=== PATIENT | female | born 1945 | race Caucasian/White ===

== ENCOUNTER → 2020-08-06 08:38 | Outpatient (CLI) | payer MEDICARE, SELFPAY ==
[2020-08-06 12:21] LABS: Absolute Lymphocyte Count 2.07 X10^3/uL (0.83-4.51); Basophil# 0.04 X10^3/uL; Basophil% 0.4 % (0-1); Eosinophil# 0.38 X10^3/uL; Eosinophils% 4.1 % (0-5); Hematocrit 41.9 % (37-47); Hemoglobin 13.6 g/dL (12.0-15.0); Lymphocyte # 2.07 X10^3/ul (4.0); Lymphocyte % 22.5 % (19-41); Mean Corp Hgb Conc 32.5 g/dL (32-36); Mean Corpuscular Hgb 29.8 pg (27.0-32.0); Mean Corpuscular Volume 91.7 fL (81-99); Mean Platelet Vol. 11.3 fl (6.2-12.0); Monocyte# 0.66 X10^3/uL; Monocyte% 7.2 % (0-10); NRBC Flagged by Analyzer 0 % (0-5); Neutrophil # 5.99 X10^3/uL (2.7-7.7); Neutrophil % 65.4 % (47-70); Platelet Count 293 K/mm3 (150-450); RBC Distribution Width CV 13.2 % (11.6-14.6); RBC Distribution Width SD 44.5 fl (35.1-43.9); Red Blood Count 4.57 M/mm3 (4.2-5.4); White Blood Count 9.2 K/mm3 (4.4-11.0)
[2020-08-06 12:45] LABS: ALB/GLOB Ratio 1.1 RATIO (0.9-2.4); AST(SGOT) 14 U/L (15-37); Alanine Aminotransfer ALT/SGPT 20 U/L (13-56); Albumin, Serum 3.8 g/dL (3.2-5.0); Alkaline Phosphatase 81 U/L (45-117); Anion Gap 7 (5-15); BUN 32 mg/dL (7-18); BUN/Creat Ratio 26.9 RATIO (10-20); Calcium,Total 8.8 mg/dL (8.5-10.1); Chloride 107 mmol/L (98-107); Cholesterol 154 mg/dL (200); Creatinine, Serum 1.19 mg/dL (0.55-1.02); EST Glomerular Filtration Rate 47 mL/min (>60); Est Glom Filt Rate - Afr Amer 57 mL/min (>60); Globulin 3.5 g/dL (2.2-4.2); Glucose 98 mg/dL (74-106); High Density Lipoprotein 45 mg/dL; Potassium 4.1 mmol/L (3.5-5.1); Protein, Total 7.3 g/dL (6.4-8.2); Sodium Level 140 mmol/L (136-145); Triglycerides 144 mg/dL; Very Low Density Lipoprotein 29 mg/dL (5-40)
== END ==
PROVIDERS: PCP Family Medicine; Visit Provider Family Medicine
DX: I25.10 Atherosclerotic heart disease of native coronary artery without angina pectoris (principal); I10 Essential (primary) hypertension
CPT/HCPCS: 36415; 80053; 80061; 85025

== ENCOUNTER → 2020-12-05 10:55 | Outpatient (CLI) | payer MEDICARE, SELFPAY ==
--- NOTE | 2020-12-05 11:00 | RAD_ITS ---
STUDY: X-RAY - LEFT ANKLE REASON FOR EXAM: Female, 75 years old. ANKLE PAIN TECHNIQUE: 3 view(s) of the ankle. COMPARISON: None. FINDINGS: Normal visualized distal tibia and fibula. Normal medial and lateral malleoli. Normal tibiotalar articulation and ankle mortise. Normal visualized talus and calcaneus. Prominent degenerative change of the midfoot The soft tissue structures are unremarkable. RAD/Ankle min 3 Views IMPRESSION: Normal x-ray examination of the ankle. Electronically Signed: Mino Verdugo DO at 2:10 EST Tel , Service support ,
== END ==
PROVIDERS: PCP Family Medicine; Referring Provider Family Medicine; Visit Provider Family Medicine
DX: M25.572 Pain in left ankle and joints of left foot (principal)
CPT/HCPCS: 73610

== ENCOUNTER → 2020-12-29 14:45 | Outpatient (CLI) | payer MEDICARE, SELFPAY ==
--- NOTE | 2020-12-29 14:47 | BI_ITS ---
MAMMOGRAPHY - BILATERAL SCREENING 3-D TOMOSYNTHESIS REASON FOR EXAM: Female, 75 years old. SCREENING PERTINENT HISTORY: No significant family history. TECHNIQUE: 2-D mammograms and 3-D Tomosynthesis of the breast (s) were performed. CAD was performed. COMPARISON: 2014 FINDINGS: The breast composition is almost entirely fat. Scattered benign calcifications are seen. No dense spiculated masses or suspicious microcalcifications are identified. No architectural distortion is identified. There is no skin thickening or retraction. There has been no significant change since the prior study. BI/SCRN MAMM (CAD)W/LESLY BILAT IMPRESSION: No mammographic signs of malignancy. Routine yearly mammograms recommended. ASSESSMENT CATEGORY: BIRADS Category 1: Negative. A letter regarding these results will be sent to the patient by the facility within 30 days. FOLLOW UP RECOMMENDATION: Yearly follow up mammogram recommended. (A) Approximately 10% of breast cancers are not detected by mammography. A normal mammogram should not delay biopsy of a clinically suspicious abnormality. Electronically Signed: Richard Arvizu MD at 13:32 EDT , Service support ,
== END ==
PROVIDERS: PCP Family Medicine; Referring Provider Family Medicine; Visit Provider Family Medicine
DX: Z12.31 Encounter for screening mammogram for malignant neoplasm of breast (principal)
CPT/HCPCS: 77063; 77067

== ENCOUNTER → 2021-03-13 09:18 | Outpatient (CLI) | payer MEDICARE, SELFPAY ==
[2021-03-13 09:37] LABS: Absolute Lymphocyte Count 2.09 X10^3/uL (0.83-4.51); Absolute Neutrophil Count 6.1 X10^3/uL (2.0-7.7); Basophil# 0.05 X10^3/uL; Basophil% 0.5 % (0-1); Eosinophil# 0.39 X10^3/uL; Eosinophils% 4.2 % (0-5); Hematocrit 41.5 % (37-47); Hemoglobin 13.7 g/dL (12.0-15.0); Lymphocyte # 2.09 X10^3/ul (0.83-4.51); Lymphocyte % 22.4 % (19-41); Mean Corpuscular Volume 87.9 fL (81-99); Mean Platelet Vol. 10.5 fl (6.2-12.0); Monocyte# 0.68 X10^3/uL; Monocyte% 7.3 % (0-10); NRBC Flagged by Analyzer 0 % (0-5); Neutrophil # 6.06 X10^3/uL (2.7-7.7); Neutrophil % 65.2 % (47-70); Platelet Count 305 K/mm3 (150-450); RBC Distribution Width CV 13.5 % (11.6-14.6); RBC Distribution Width SD 43.7 fl (35.1-43.9); Red Blood Count 4.72 M/mm3 (4.2-5.4); White Blood Count 9.3 K/mm3 (4.4-11.0)
[2021-03-13 09:45] LABS: Color, Urine Yellow (Yellow); Glucose, Dipstick Normal (Normal); Ketone-Dipstick Negative (Negative); Leukocyte Esterase-Dipstick 500 /ul (Negative); Nitrite-Dipstick Negative (Negative); Occult Blood-Urine 50 /ul (Negative); Protein-Dipstick 30 mg/dl (Negative); Specific Gravity, Urine 1.025 (1.002-1.030); Urine Bilirubin Dipstick Negative (Negative); Urine Clarity Cloudy (Clear); Urine Urobilinogen Normal (Normal)
[2021-03-13 10:05] LABS: AST(SGOT) 18 U/L (15-37); Alanine Aminotransfer ALT/SGPT 20 U/L (13-56); Albumin, Serum 3.6 g/dL (3.2-5.0); Alkaline Phosphatase 99 U/L (45-117); Anion Gap 9 (5-15); BUN 22 mg/dL (7-18); BUN/Creat Ratio 17.3 RATIO (10-20); Calcium,Total 9.4 mg/dL (8.5-10.1); Chloride 106 mmol/L (98-107); Cholesterol 203 mg/dL (200); Creatinine, Serum 1.27 mg/dL (0.55-1.02); EST Glomerular Filtration Rate 44 mL/min (>60); Est Glom Filt Rate - Afr Amer 53 mL/min (>60); Globulin 3.5 g/dL (2.2-4.2); Glucose 113 mg/dL (74-106); High Density Lipoprotein 49 mg/dL; Protein, Total 7.1 g/dL (6.4-8.2); Sodium Level 141 mmol/L (136-145); Triglycerides 152 mg/dL; Very Low Density Lipoprotein 30 mg/dL (5-40)
== END ==
PROVIDERS: PCP Family Medicine; Referring Provider Family Medicine; Visit Provider Family Medicine
DX: I12.9 Hypertensive chronic kidney disease with stage 1 through stage 4 chronic kidney disease, or unspecified chronic kidney disease (principal); I25.10 Atherosclerotic heart disease of native coronary artery without angina pectoris; N18.30 Chronic kidney disease, stage 3 unspecified
CPT/HCPCS: 36415; 80053; 80061; 81002; 85025

== ENCOUNTER 2021-10-20 18:08 | Outpatient (CLI) | payer MEDICARE, SELFPAY | END 2021-10-20 23:59 | disposition short-term general hospital (02) | PROVIDERS: PCP Family Medicine; Visit Provider Family Medicine | DX: U07.1 COVID-19 (principal) | CPT/HCPCS: 87635; U0003; U0005 ==

== ENCOUNTER 2022-01-20 18:57 | Emergency (ER) | payer MEDICARE, SELFPAY ==
[2022-01-20 18:58] VITALS: BP 199/78; PULSE 95; RESP 17; TEMP 36.2; O2SAT 100; BMI 43.4
--- NOTE | 2022-01-20 19:15 | EDS_ITS ---
HPI History of Present Illness Chief Complaint: Back Informant: patient Onset/Context/Timing Onset: Days (2) Context: - (Awoke with symptoms yesterday morning) Timing: Continuous Quality: Aching Location: Lumbar (Across lower back nonlateralizing) Current Severity: Moderate Maximum Severity: Moderate Worsened by: improves with Movement and Ambulation Relieved by: Remaining Still Associated Symptoms Associated Symptoms: Negative for Numbness, Tingling, Radiation to Right Leg, Radiation to Left Leg, Abdominal Pain, Dysuria, Unable to Ambulate, Urinary Retention, Urinary Incontinence, Constipation and Fecal Incontinence Narrative Narrative: Patient states she does not usually have back problems, she woke up with low back discomfort yesterday morning it has persisted. She took some Aleve, it may be helped a little but not very much. It is worse when she walks mostly. She can sit okay without significant discomfort, no radiation down the legs, no saddle anesthesia, no bowel or bladder dysfunction. No numbness or weakness in her legs and she is able to walk okay just hurts. [facility] Medical History Arthritis Cervical radiculopathy Cervical strain Heart disease HTN (hypertension) Shoulder pain Strain of right trapezius muscle Home Medications amlodipine 5 mg tablet mg PO 04/20/21 [History Last Taken Unknown] aspirin 81 mg tablet,delayed release 81 mg PO DAILY 04/20/21 [History Last Taken Unknown] celecoxib 200 mg capsule mg PO 04/20/21 [History Last Taken Unknown] losartan 50 mg tablet mg PO 04/20/21 [History Last Taken Unknown] metoprolol succinate 50 mg tablet,extended release 24 hr mg PO 04/20/21 [History Last Taken Unknown] multivitamin 1 tab PO DAILY 04/20/21 [History Last Taken Unknown] pravastatin 40 mg tablet mg PO 04/20/21 [History Last Taken Unknown] ropinirole 1 mg tablet mg PO 04/20/21 [History Last Taken Unknown] cephalexin 500 mg PO TID #21 capsule 01/20/22 [Rx Last Taken Unknown] Allergy/AdvReac Type Severity Reaction Status Date / Time No Known Allergies Allergy Verified 01/20/22 18:59 Surgical History History of cataract surgery History of total bilateral knee replacement Hx of heart artery stent Social History Smoking Status: Never smoker alcohol intake: current alcohol intake frequency: holidays/special occasions only ROS ROS ED Constitutional Constitutional ED: Denies chills or fever(s) Gastrointestinal Gastrointestinal: Denies abdominal pain, constipation, fecal incontinence, nausea or vomiting Genitourinary Genitourinary ED: Reports other Details: no urinary retention ; Denies abdominal discomfort or urinary incontinence Musculoskeletal Musculoskeletal: Reports as per HPI and back pain; Denies neck pain Integumentary Denies rash or wounds Neurologic Neurologic: Denies headache(s), paresthesias or weakness EXAM Physical Exam Const Vital Signs: 01/20/22 18:58 01/20/22 19:33 01/20/22 20:32 Temperature 97.2 F L Temperature Source Temporal Pulse Rate 95 Respiratory Rate 17 17 Blood Pressure 199/78 H 144/82 H Blood Pressure Mean 118 102 Pulse Ox 100 Oxygen Delivery Method Room Air Positive well nourished, well developed and obese General Appearance ED: well developed and NAD Nutritional Appearance: obese HEENT Negative for trauma or tenderness Eyes PERRL and EOMs intact bilaterally Neck full ROM and supple GI normal to inspection, nondistended, normoactive bowel sounds, soft to palpation and non-tender no CVA tenderness Back/Spine normal to inspection Lumbar Spine / Lower Back: normal to inspection, ROM limited, pain with ROM and straight leg raise negative bilaterally; Negative for lumbar spinal tenderness, paraspinal muscle tenderness or paraspinal muscle spasm Extremity normal to inspection, full ROM and no pedal edema Neuro oriented x3 and no sensory deficits noted Sensorium / Orientation: alert Motor Exam: strength 5/5 throughout and clonus absent Deep Tendon Reflexes: Rt Patellar (L4): 1+, Lt Patellar (L4): 1+, Rt Ankle (S1): 2+ and Lt Ankle (S1): 2+ Deep Tendon Reflexes Back: Rt Patellar (L4): 1+, Lt Patellar (L4): 1+, Rt Ankle (S1): 2+ and Lt Ankle (S1): 2+ Psych mental status grossly normal and thought process normal Skin no rashes or lesions noted and no wounds MDM MDM MDM Narrative Medical decision making narrative: Patient's blood pressure was significantly elevated although she did not appear to have symptoms from it, 199/78. She was given a dose of clonidine and while she was being treated and having tests run for her symptoms, her blood pressure came down to 144/82. She did not have adverse effects/symptoms from this. On my interpretation 3 view x-ray of her lumbosacral spine shows degenerative changes of the discs but the vertebrae appear to show nothing acute, just chronic changes. Radiology interpretation still pending there. Her urinalysis does show signs of infection, and I suspect this is probably causing her low back pain that is not reproducible on exam. Sent for a culture, started on cephalexin, she was given Shelby here which did help her pain, and I advised close outpatient follow-up especially if her symptoms do not improve with the antibiotics. She is comfortable with that plan. Lab Data Attestation: I reviewed the patient's lab results. Labs: Laboratory Results - last 24 hr 01/20/22 01/20/22 19:36 19:50 Sodium 140 Potassium 4.4 Chloride 109 H Carbon Dioxide 27.0 Anion Gap 4 L BUN 28 H Creatinine 1.31 H Estim Creat Clear Calc 28.43 Est GFR (MDRD) Af Amer 51 L Est GFR (MDRD) Non-Af 42 L BUN/Creatinine Ratio 21.4 H Glucose 112 H Calcium 9.2 Urine Color Yellow Urine Clarity Cloudy Urine pH 6.0 Ur Specific [place] 1.025 Urine Protein 30 H Urine Glucose (UA) Normal Urine Ketones Negative Urine Occult Blood 150 H Urine Nitrite Positive H Urine Bilirubin Negative Urine Urobilinogen Normal Ur Leukocyte Esterase 500 H Urine RBC 0-5 SEEN Urine WBC 10-25 SEEN Ur Squamous Epith Cells 10-25 SEEN Urine Bacteria 1+ Urine Mucus 0 SEEN Discharge Plan Triage Chief Complaint: Back ED Provider: Itz Barker Dx/Rx/DC Orders Clinical Impression: Acute lower urinary tract infection, Low back pain, Accelerated hypertension Instructions: Controlling High Blood Pressure, ED CYSTITIS Female Adult Prescriptions: New cephalexin [cephalexin] 500 MG capsule 500 mg PO TID Qty: 21 RF: 0 No Action ropinirole 1 mg tablet PO RF: 0 pravastatin 40 mg tablet PO RF: 0 amlodipine 5 mg tablet PO RF: 0 losartan 50 mg tablet PO RF: 0 celecoxib 200 mg capsule PO RF: 0 metoprolol succinate 50 mg tablet extended release 24 hr PO RF: 0 aspirin [Adult Aspirin Regimen] 81 mg tablet,delayed release (DR/EC) 81 mg PO DAILY RF: 0 multivitamin Tablet 1 tab PO DAILY RF: 0 Primary Care Provider: Deloris Duong Referrals: Deloris Duong MD [Primary Care Provider] - (Follow-up within the next several days or next week for a blood pressure recheck, and to review your symptoms and urine culture.) Disposition Disposition: Home, Self Care
[2022-01-20] MEDS: cloNIDine HCl 0.1 MG Tablet PO (19:22)
[2022-01-20] MEDS: HYDROcodone Bitartrate/Apap 5/325 Tablet PO (19:23)
--- NOTE | 2022-01-20 19:31 | ED.RN ---
Sent urine down but she was only able to void a small amount. She states she just went before she left and says this has not been having this issue. The urine was cloudy. Sent down to try and run, but patient is drinking water and aware will possibly need another sample if that is not enough for the test.
[2022-01-20 19:33] VITALS: RESP 17
--- NOTE | 2022-01-20 19:45 | RAD_ITS ---
STUDY: X-RAY - LUMBAR SPINE REASON FOR EXAM: Female, 76 years old. Pain TECHNIQUE: 3 view(s) of the lumbar spine were obtained. COMPARISON: None FINDINGS: Normal lumbar lordosis. There is no substantial scoliosis. There is a grade 1 anterolisthesis at L4-5 . There is diffuse demineralization with multi-level endplate spondylosis. There is multi-level degenerative disc disease with multi-level disc space narrowing. There is no demonstrated fracture. There is atherosclerotic calcification of the abdominal aorta without a demonstrated aneurysm. RAD/Lumbar Spine 2 or 3 Views IMPRESSION: Degenerative changes of the spine, as detailed above. Electronically Signed: Itz Palma MD at 21:03 EDT ,
[2022-01-20 19:49] LABS: Mucous, Urine 0 SEEN /hpf (<or=2+)
[2022-01-20 19:52] LABS: Color, Urine Yellow (Yellow); Glucose, Dipstick Normal (Normal); Ketone-Dipstick Negative (Negative); Leukocyte Esterase-Dipstick 500 /ul (Negative); Nitrite-Dipstick Positive (Negative); Occult Blood-Urine 150 /ul (Negative); Protein-Dipstick 30 mg/dl (Negative); Specific Gravity, Urine 1.025 (1.002-1.030); Urine Bilirubin Dipstick Negative (Negative); Urine Clarity Cloudy (Clear); Urine Urobilinogen Normal (Normal)
[2022-01-20 20:25] LABS: Bacteria 1+ /hpf (None Seen); Red Blood Cells-Urine 0-5 SEEN /hpf (0-5); Squamous Epithelial Cells - UA 10-25 SEEN /hpf (5-10); White Blood Cells 10-25 SEEN /hpf (0-5)
[2022-01-20 20:25] LABS: Anion Gap 4 (5-15); BUN 28 mg/dL (7-18); BUN/Creat Ratio 21.4 RATIO (10-20); Calcium,Total 9.2 mg/dL (8.5-10.1); Chloride 109 mmol/L (98-107); Creatinine, Serum 1.31 mg/dL (0.55-1.02); EST Glomerular Filtration Rate 42 mL/min (>60); Est Glom Filt Rate - Afr Amer 51 mL/min (>60); Estimated Creatinine Clearance 28.43 ml/min; Glucose 112 mg/dL (74-106); Potassium 4.4 mmol/L (3.5-5.1); Sodium Level 140 mmol/L (136-145)
[2022-01-20 20:32] VITALS: BP 144/82
[2022-01-20] MEDS: Cephalexin 250 MG Capsule 500 MG PO (20:46)
[2022-01-20 20:50] VITALS: BP 155/82; RESP 18; O2SAT 98
--- NOTE | 2022-01-20 20:51 | NURSING ---
reviewed discharge instructions with pt and spouse. reviewed S&S and treatment of bladder infections. pt waiting on daughter to pick her up. denies any further questions.
== END 2022-01-20 20:53 | disposition home or self-care (01) ==
PROVIDERS: Emergency Provider Emergency Medicine; PCP Family Medicine; Visit Provider Emergency Medicine
DX: N39.0 Urinary tract infection, site not specified (principal); M54.50 Low back pain, unspecified; I10 Essential (primary) hypertension; E66.9 Obesity, unspecified; Z95.5 Presence of coronary angioplasty implant and graft
CPT/HCPCS: 72100; 80048; 81001; 99284; A4216

== ENCOUNTER → 2022-04-08 | Outpatient (CLI) | payer MEDICARE, SELFPAY ==
--- NOTE | 2022-04-08 12:59 | RAD_ITS ---
INDICATION: HIP PAIN EXAMINATION/TECHNIQUE: X-RAY - RIGHT XR Hip Unilateral with Pelvis when performed; 2-3 Views 3 VIEWS COMPARISON: None. FINDINGS: SOFT TISSUES: No soft tissue swelling or gas. No radiopaque foreign body. Surgical clips right upper pelvis region and left lower pelvis. Atherosclerotic intimal calcifications femoral arteries. BONES/JOINTS: No acute fracture or malalignment. Preservation of the joint space and no degenerative bony proliferative changes. No sclerotic or destructive changes observed. Degenerative changes lower lumbar spine. RAD/HIP, UNI W/ Pelvis 2-3 Views IMPRESSION: No pelvis or hip fracture. Atherosclerosis. Electronically Signed: Jorge Carter DO at 21:03 EDT ,
== END | disposition home or self-care (01) ==
LOC: MTLAB 12:58
PROVIDERS: PCP Family Medicine; Referring Provider Family Medicine; Visit Provider Family Medicine
DX: M25.551 Pain in right hip (principal)
CPT/HCPCS: 73502

== ENCOUNTER → 2022-07-07 | Outpatient (CLI) | payer MEDICARE, SELFPAY ==
[2022-07-07 12:25] LABS: Absolute Lymphocyte Count 1.68 X10^3/uL (0.83-4.51); Absolute Neutrophil Count 7.5 X10^3/uL (2.0-7.7); Basophil# 0.05 X10^3/uL; Basophil% 0.5 % (0-1); Eosinophil# 0.43 X10^3/uL; Eosinophils% 4.1 % (0-5); Hematocrit 41.7 % (37-47); Hemoglobin 13.3 g/dL (12.0-15.0); Lymphocyte # 1.68 X10^3/ul (0.83-4.51); Mean Corp Hgb Conc 31.9 g/dL (32-36); Mean Corpuscular Hgb 29.1 pg (27.0-32.0); Mean Corpuscular Volume 91.2 fL (81-99); Mean Platelet Vol. 10.7 fl (6.2-12.0); Monocyte# 0.77 X10^3/uL; Monocyte% 7.3 % (0-10); NRBC Flagged by Analyzer 0 % (0-5); Neutrophil % 71.4 % (47-70); Platelet Count 313 K/mm3 (150-450); RBC Distribution Width CV 13.5 % (11.6-14.6); RBC Distribution Width SD 45.5 fl (35.1-43.9); Red Blood Count 4.57 M/mm3 (4.2-5.4); White Blood Count 10.5 K/mm3 (4.4-11.0)
[2022-07-07 12:48] LABS: AST(SGOT) 15 U/L (15-37); Alanine Aminotransfer ALT/SGPT 24 U/L (13-56); Albumin, Serum 3.5 g/dL (3.2-5.0); Alkaline Phosphatase 86 U/L (45-117); Anion Gap 9 (5-15); BUN 29 mg/dL (7-18); BUN/Creat Ratio 22.8 RATIO (10-20); Calcium,Total 9.2 mg/dL (8.5-10.1); Chloride 105 mmol/L (98-107); Cholesterol 154 mg/dL (200); Creatinine, Serum 1.27 mg/dL (0.55-1.02); EST Glomerular Filtration Rate 44 mL/min (>60); Est Glom Filt Rate - Afr Amer 53 mL/min (>60); Globulin 3.6 g/dL (2.2-4.2); Glucose 103 mg/dL (74-106); High Density Lipoprotein 43 mg/dL; Potassium 4.3 mmol/L (3.5-5.1); Protein, Total 7.1 g/dL (6.4-8.2); Sodium Level 140 mmol/L (136-145); Triglycerides 169 mg/dL; Very Low Density Lipoprotein 34 mg/dL (5-40)
[2022-07-07 13:24] LABS: Protein, Urine (Random) 13.7 mg/dL (<11.9); Protein:Creat Ratio 235 mg/g CRE (0-200)
== END | disposition home or self-care (01) ==
LOC: BFHLAB 08:42
PROVIDERS: PCP Family Medicine; Visit Provider Family Medicine
DX: Z00.00 Encounter for general adult medical examination without abnormal findings (principal); N18.30 Chronic kidney disease, stage 3 unspecified; I25.10 Atherosclerotic heart disease of native coronary artery without angina pectoris; I12.9 Hypertensive chronic kidney disease with stage 1 through stage 4 chronic kidney disease, or unspecified chronic kidney disease
CPT/HCPCS: 36415; 80053; 80061; 82570; 84156; 85025

== ENCOUNTER 2022-10-25 08:56 | Emergency (ER) | payer MEDICARE, SELFPAY ==
[2022-10-25 08:57] VITALS: BP 177/83; PULSE 71; RESP 17; TEMP 36.3; O2SAT 100; BMI 44.2
--- NOTE | 2022-10-25 09:25 | RAD_ITS ---
STUDY: X-RAY - PELVIS AND RIGHT HIP REASON FOR EXAM: Female, 77 years old. 4 day history of increasing right hip pain. TECHNIQUE: 3 views of the pelvis and hip. COMPARISON: Comparison is made with prior study dated 04/08/2022. FINDINGS: There is a non-specific bowel gas pattern. There are multiple calcified phleboliths. Normal bilateral iliac wings, sacroiliac joints and visualized sacrum. Normal bilateral superior and inferior pubic rami. Normal pubic symphysis. Normal bilateral ischial tuberosities. Normal visualized femoral head. There is osteoarthritic spur formation of the acetabular rim. There is mild articular joint space narrowing of the hip. Disc space narrowing and the spondylosis in the lower lumbar spine. RAD/HIP, UNI W/ Pelvis 2-3 Views IMPRESSION: Degenerative changes. No acute abnormality is seen. Electronically Signed: Sam Brody MD at 10:55 EST ,
--- NOTE | 2022-10-25 09:27 | EDS_ITS ---
HPI History of Present Illness Chief Complaint: Lower Extremity Injury Informant: patient Onset/Context/Timing Onset: Days (4-5) Context: Gradual Onset Timing: Continuous Quality of Pain: Aching Location: R hip/buttock Current Severity: Moderate Maximum Severity: Moderate Worsened by: movement, bending, walking, sitting Relieved by: resting Associated Symptoms Associated Symptoms: Negative for Parasthesia, Weakness or Loss of Funtion Narrative Narrative: Patient complaining of 4 or 5 days gradual onset of pain in her right hip and buttock, radiating into her groin. She think she has been urinating a little more frequently. Hurts more to move and better to remain still and rest. She denies any symptoms radiating down to or below her knee. No numbness or weaknes s. No abdominal pain, nausea, vomiting, diarrhea, bright red blood per rectum, or hematuria. She denies any pain in her low back. She denies any falls or injuries. [facility] Medical History Arthritis Cervical radiculopathy Cervical strain Heart disease HTN (hypertension) Shoulder pain Strain of right biceps Strain of right shoulder Strain of right trapezius muscle Home Medications amlodipine 5 mg tablet mg PO 04/20/21 [History Last Taken Unknown] aspirin 81 mg tablet,delayed release (Adult Aspirin Regimen) 81 mg PO DAILY 04/20/21 [History Last Taken Unknown] celecoxib 200 mg capsule mg PO 04/20/21 [History Last Taken Unknown] losartan 50 mg tablet mg PO 04/20/21 [History Last Taken Unknown] metoprolol succinate 50 mg tablet,extended release 24 hr mg PO 04/20/21 [History Last Taken Unknown] multivitamin 1 tab PO DAILY 04/20/21 [History Last Taken Unknown] pravastatin 40 mg tablet mg PO 04/20/21 [History Last Taken Unknown] ropinirole 1 mg tablet mg PO 04/20/21 [History Last Taken Unknown] cephalexin 500 mg capsule 500 mg PO TID #21 CAPSULES 01/20/22 [Rx Last Taken Unknown] methylprednisolone 4 mg tablets in a dose pack See Rx Instructions PO PER PKG DIR #21 tabs 06/02/22 [Rx Last Taken Unknown] hydrocodone-acetaminophen 5-325mg 5mg-325mg 1 tab PO Q6H PRN PRN Pain 3 days #10 TABLETS 10/25/22 [Rx Last Taken Unknown] sulfamethoxazole 800 mg-trimethoprim 160 mg tablet 1 tab PO BID #14 TABLETS 0 10/25/22 [Rx Last Taken Unknown] Allergy/AdvReac Type Severity Reaction Status Date / Time No Known Allergies Allergy Verified 10/25/22 08:57 Surgical History History of cataract surgery History of total bilateral knee replacement Hx of heart artery stent Social History Smoking Status: Never smoker alcohol intake: current alcohol intake frequency: holidays/special occasions only ROS ROS ED Constitutional Constitutional ED: Denies chills or fever(s) Gastrointestinal Gastrointestinal: Denies abdominal pain, constipation, fecal incontinence, nausea or vomiting Genitourinary Genitourinary ED: Reports urinary frequency and other Details: no urinary retention ; Denies abdominal discomfort, dysuria or urinary incontinence Musculoskeletal Musculoskeletal: Reports as per HPI; Denies neck pain Integumentary Denies rash or wounds Neurologic Neurologic: Denies headache(s), paresthesias or weakness EXAM Physical Exam Const Vital Signs: 10/25/22 08:57 Temperature 97.3 F L Temperature Source Temporal Pulse Rate 71 Respiratory Rate 17 Blood Pressure 177/83 H Blood Pressure Mean 114 Pulse Ox 100 Oxygen Delivery Method Room Air Positive well nourished, well developed and obese General Appearance ED: well developed and NAD Nutritional Appearance: obese HEENT Negative for trauma or tenderness Eyes PERRL and EOMs intact bilaterally Neck full ROM and supple GI normal to inspection, nondistended, normoactive bowel sounds, soft to palpation and non-tender Back/Spine no CVA tenderness and normal to inspection Lumbar Spine / Lower Back: straight leg raise negative bilaterally; Negative for ROM limited or lumbar spinal tenderness Extremity normal to inspection, full ROM and no pedal edema Extremity Narrative: Patient has pain with passive and active flexion of the thigh with very mild tenderness at the origin of the quadriceps tendon. It is nontender when she is not moving it. She has painless full logroll internal and external rotation of the right lower extremity at the hip and there is no tenderness at the greater trochanteric bursa. She does have some mild tenderness throughout the surrounding area and buttock without any signs of cellulitis or abscess. It seems that the majority of the pain is with flexion of the thigh. Straight leg raises are painful in the lateral right buttock but negative for radicular symptoms or findings. Neuro oriented x3 and no sensory deficits noted Sensorium / Orientation: alert Motor Exam: strength 5/5 throughout and clonus absent Deep Tendon Reflexes: Rt Patellar (L4): 2+ and Lt Patellar (L4): 2+ Deep Tendon Reflexes Back: Rt Patellar (L4): 2+ and Lt Patellar (L4): 2+ Plantar Reflex: Downgoing: bilateral Psych mental status grossly normal and thought process normal Skin no rashes or lesions noted and no wounds MDM MDM MDM Narrative Medical decision making narrative: Differential also here does include urinary infection as the patient is wondering about, as well as hip pathology given the area where she is having the pain which includes a very small portion of the right anterior flank but mostly buttock and hip area, given her exam and history. Therefore given her age I did do hip x-rays including the entire pelvis. 3 views of my interpretation are negative for any acute, radiology in agreement I reviewed his interpretation. I did a urinalysis, it does show significant leukocyte Estrace with some mild pyuria and rare bacteria, and no blood although she dips for a trace, there are no cells/RBC. It is possible this is indicative of infection. Therefore I am going to send a culture and treat her empirically with a week of Bactrim, given her flank pain to cover a sending infection. She does not have pyelonephritis on exam. We will also prescribe her some analgesics, we did treat her pain here she is stable for discharge and wanting to go home. Urinary culture sent. Lab Data Attestation: I reviewed the patient's lab results. Labs: Laboratory Results - last 24 hr 10/25/22 10:10 Urine Color Yellow Urine Clarity Sl. Cloudy Urine pH 6.0 Ur Specific [place] 1.015 Urine Protein Negative Urine Glucose (UA) Normal Urine Ketones Negative Urine Occult Blood 10 H Urine Nitrite Negative Urine Bilirubin Negative Urine Urobilinogen Normal Ur Leukocyte Esterase 500 H Urine RBC 0 SEEN Urine WBC 5-10 SEEN Ur Squamous Epith Cells 0-5 SEEN Urine Bacteria RARE Urine Mucus 0 SEEN Radiography Diagnostic Testing: Clinical Impression(s) from Imaging Studies Hip/Pelvis X-Ray 10/25/22 09:25 IMPRESSION: Degenerative changes. No acute abnormality is seen. Electronically Signed: Sam Brody MD at 10:55 EST , Discharge Plan Triage Chief Complaint: Lower Extremity Injury ED Provider: Itz aBrker Dx/Rx/DC Orders Clinical Impression: Acute pain of right hip, Acute UTI Instructions: How Your Hip Works, ED Cystitis Female Adult Prescriptions: New hydrocodone-acetaminophen [hydrocodone-acetaminophen] 5-325 mg tablet 1 tab PO Q6H PRN PRN (Reason: Pain) 3 Days Qty: 10 0RF sulfamethoxazole-trimethoprim [sulfamethoxazole-trimethoprim] 800-160 mg tablet 1 tab PO BID Qty: 14 0RF No Action ropinirole 1 mg tablet PO pravastatin 40 mg tablet PO amlodipine 5 mg tablet PO losartan 50 mg tablet PO celecoxib 200 mg capsule PO metoprolol succinate 50 mg tablet extended release 24 hr PO aspirin [Adult Aspirin Regimen] 81 mg tablet,delayed release (DR/EC) 81 mg PO DAILY multivitamin Tablet 1 tab PO DAILY methylprednisolone 4 mg tablets,dose pack See Rx Instructions PO PER PKG DIR Qty: 21 0RF Rx Instructions: PO PER PKG DIR cephalexin [cephalexin] 500 MG capsule 500 mg PO TID Qty: 21 0RF Primary Care Provider: Deloris Duong Referrals: Deloris Duong MD [Primary Care Provider] - 3-5 Days if not improving Disposition Disposition: Home, Self Care
[2022-10-25] MEDS: Ketorolac 15 MG/ML Vial IM (10:09)
[2022-10-25] MEDS: Orphenadrine 60 MG/2 ML Ampul IM (10:09)
[2022-10-25 10:16] LABS: Mucous, Urine 0 SEEN /hpf (<or=2+); Red Blood Cells-Urine 0 SEEN /hpf (0-5)
[2022-10-25 10:23] LABS: Glucose, Dipstick Normal (Normal); Ketone-Dipstick Negative (Negative); Leukocyte Esterase-Dipstick 500 /ul (Negative); Nitrite-Dipstick Negative (Negative); Occult Blood-Urine 10 /ul (Negative); Protein-Dipstick Negative (Negative); Specific Gravity, Urine 1.015 (1.002-1.030); Urine Bilirubin Dipstick Negative (Negative); Urine Clarity Sl. Cloudy (Clear); Urine Urobilinogen Normal (Normal)
[2022-10-25 10:36] LABS: Color, Urine Yellow (Yellow)
[2022-10-25 10:40] LABS: Squamous Epithelial Cells - UA 0-5 SEEN /hpf (5-10); White Blood Cells 5-10 SEEN /hpf (0-5)
[2022-10-25 10:41] LABS: Bacteria RARE /hpf (None Seen)
[2022-10-25] MEDS: Smz/Tmp Ds Tablet 1 TABLET PO (12:00)
[2022-10-25] MEDS: HYDROcodone Bitartrate/Apap 5/325 Tablet PO (12:00)
== END 2022-10-25 12:01 | disposition home or self-care (01) ==
PROVIDERS: Emergency Provider Emergency Medicine; PCP Family Medicine; Visit Provider Emergency Medicine
DX: M25.551 Pain in right hip (principal); N39.0 Urinary tract infection, site not specified; E66.9 Obesity, unspecified
CPT/HCPCS: 73502; 81001; 87086; 87088; 87186; 96372; 99284

== ENCOUNTER 2023-02-22 22:53 | Emergency (ER) | payer MEDICARE, SELFPAY ==
[2023-02-22 22:53] VITALS: BP 160/120; PULSE 92; RESP 16; TEMP 36.3; O2SAT 96
--- NOTE | 2023-02-22 23:00 | EKG12_ITS ---
Test Reason : CP Blood Pressure : / mmHG Vent. Rate : 086 BPM Atrial Rate : 086 BPM P-R Int : 162 ms QRS Dur : 078 ms QT Int : 394 ms P-R-T Axes : 030 -05 034 degrees QTc Int : 471 ms Normal sinus rhythm Inferior infarct , age undetermined Abnormal ECG Confirmed by MARIELOS MARTINEZ, CHOCO ([id number]), assistant editor CHARLINE BAL ([id number]) on 02/24/2023 9:04:50 AM Referred By: SARAH Confirmed By:CHOCO ARCEO MD
--- NOTE | 2023-02-22 23:02 | EKG12_ITS ---
Test Reason : CP Blood Pressure : / mmHG Vent. Rate : 088 BPM Atrial Rate : 088 BPM P-R Int : 158 ms QRS Dur : 092 ms QT Int : 382 ms P-R-T Axes : 027 -11 040 degrees QTc Int : 462 ms Normal sinus rhythm Inferior infarct , age undetermined Abnormal ECG Confirmed by MARIELOS MARTINEZ, CHOCO ([id number]), online editor CHARLINE BAL ([id number]) on 02/24/2023 9:06:12 AM Referred By: SARAH Confirmed By:CHOCO ARCEO MD
--- NOTE | 2023-02-22 23:25 | RAD_ITS ---
EXAM: XR CHEST, 1 VIEW CLINICAL INDICATION: chest pain TECHNIQUE: Frontal view of the chest. COMPARISON: No relevant prior studies available. FINDINGS: LUNGS AND PLEURAL SPACES: Unremarkable. No consolidation or edema. No pneumothorax. No effusion. HEART: Unremarkable. Cardiac silhouette not enlarged. MEDIASTINUM: Central airways and mediastinal contour are unremarkable. BONES/JOINTS: Unremarkable. SOFT TISSUES: Unremarkable. VASCULATURE: Mild peripheral calcification of the aortic arch. RAD/Chest 1 View (Portable) IMPRESSION: No acute intrathoracic abnormality. Electronically Signed: Rebecca Olvera MD at 0:55 EDT ,
[2023-02-22 23:32] LABS: Absolute Lymphocyte Count 0.83 X10^3/uL (0.83-4.51); Basophil# 0.02 X10^3/uL; Basophil% 0.2 % (0-1); Hematocrit 39.8 % (37-47); Hemoglobin 12.8 g/dL (12.0-15.0); Lymphocyte # 0.83 X10^3/ul (0.83-4.51); Lymphocyte % 7.5 % (19-41); Mean Corp Hgb Conc 32.2 g/dL (32-36); Mean Corpuscular Hgb 29.1 pg (27.0-32.0); Mean Corpuscular Volume 90.5 fL (81-99); Mean Platelet Vol. 10.7 fl (6.2-12.0); Monocyte# 0.07 X10^3/uL; Monocyte% 0.6 % (0-10); NRBC Flagged by Analyzer 0 % (0-5); Neutrophil # 10.01 X10^3/uL (2.7-7.7); Neutrophil % 90.6 % (47-70); Platelet Count 317 K/mm3 (150-450); RBC Distribution Width CV 13.8 % (11.6-14.6); RBC Distribution Width SD 46.3 fl (35.1-43.9); White Blood Count 11.1 K/mm3 (4.4-11.0)
[2023-02-22 23:43] VITALS: BMI 41.3
[2023-02-22 23:45] LABS: Anion Gap 9 (5-15); BUN 35 mg/dL (7-18); BUN/Creat Ratio 22.3 RATIO (10-20); Calcium,Total 9.3 mg/dL (8.5-10.1); Chloride 107 mmol/L (98-107); Creatinine, Serum 1.57 mg/dL (0.55-1.02); EST Glomerular Filtration Rate 34 mL/min (>60); Est Glom Filt Rate - Afr Amer 41 mL/min (>60); Estimated Creatinine Clearance 25.61 ml/min; Glucose 202 mg/dL (74-106); Potassium 4.2 mmol/L (3.5-5.1); Sodium Level 137 mmol/L (136-145); Troponin-I HS (w/2H Reflex) 7 pg/mL (3.0-54.0)
[2023-02-22 23:49] VITALS: O2SAT 96
[2023-02-22 23:52] VITALS: BP 144/54; PULSE 81; RESP 18; O2SAT 96
[2023-02-23] VITALS (7 sets, daily range): BP systolic 136–161; BP diastolic 67–85; PULSE 82–90; RESP 16–25; O2SAT 95–98
--- NOTE | 2023-02-23 00:11 | EDS_ITS ---
HPI History of Present Illness Chief Complaint: Chest Pain Detail of Chief Complaint: Left parasternal chest discomfort at rest tonight. Informant: patient Onset/Context/Timing Onset: Today and Hours Activity at onset: gradual Timing: Continuous Quality: Positive for Aching Location: Left Parasternal Current Severity: 10 Maximum Severity: Mild Worsened By: Nothing Relieved By: Nothing Associated Symptoms: Negative for Nausea, Vomiting, Diaphoresis, Dyspnea, Cough, Fever, Lightheadedness, Acid Reflux or Palpitations Narrative Narrative: 77-year-old female history of hypertension, CAD and stent that was placed in [place] in 2004. She had a heart cath 3 years ago which she states was unremarkable. Tonight she was sitting at home resting and she does not develop left parasternal chest discomfort. While seated at dinner. Denies any nausea or diaphoresis. No significant shortness of breath. No leg pain or swelling. No hemoptysis. No history of DVT or PE. No recent exertion chest pain Prior Similar Symptoms: No Recent Illness/Hospitalization: No CVD Risk Factors: Positive for Hypertension PE Risk Factors: Negative for Recent Travel/Surgery, Recent Immobilization, Prior DVT or PE, Cancer or OCP + Smoking + >/=35 TAD Risk Factors: Negative for Marfan's Syndrome [facility] Medical History Arthritis Cervical radiculopathy Cervical strain Former smoker Heart disease HTN (hypertension) Migraines Osteoporosis Shoulder pain Strain of right biceps Strain of right shoulder Strain of right trapezius muscle Home Medications amlodipine 5 mg tablet mg PO 04/20/21 [History Last Taken Unknown] aspirin 81 mg tablet,delayed release (Adult Aspirin Regimen) 81 mg PO DAILY 04/20/21 [History Last Taken Unknown] celecoxib 200 mg capsule mg PO 04/20/21 [History Last Taken Unknown] losartan 50 mg tablet mg PO 04/20/21 [History Last Taken Unknown] metoprolol succinate 50 mg tablet,extended release 24 hr mg PO 04/20/21 [History Last Taken Unknown] multivitamin 1 tab PO DAILY 04/20/21 [History Last Taken Unknown] pravastatin 40 mg tablet mg PO 04/20/21 [History Last Taken Unknown] ropinirole 1 mg tablet mg PO 04/20/21 [History Last Taken Unknown] cephalexin 500 mg capsule 500 mg PO TID #21 CAPSULES 01/20/22 [Rx Last Taken Unknown] methylprednisolone 4 mg tablets in a dose pack See Rx Instructions PO PER PKG DIR #21 tabs 06/02/22 [Rx Last Taken Unknown] hydrocodone-acetaminophen 5-325mg 5mg-325mg 1 tab PO Q6H PRN PRN Pain 3 days #10 TABLETS 10/25/22 [Rx Last Taken Unknown] sulfamethoxazole 800 mg-trimethoprim 160 mg tablet 1 tab PO BID #14 TABLETS 10/25/22 [Rx Last Taken Unknown] Allergy/AdvReac Type Severity Reaction Status Date / Time No Known Allergies Allergy Verified 10/25/22 08:57 Surgical History History of cataract surgery History of total bilateral knee replacement Hx of heart artery stent Social History Smoking Status: Former smoker alcohol intake: current alcohol intake frequency: holidays/special occasions only ROS ROS ED ROS Narrative Left chest pain. No recent illness. No recent exertional pain. Review of Systems ROS Unobtainable: Denies due to encephalopathy Constitutional Constitutional ED: Denies chills or fever(s) Eyes Eyes: Reports none ENT ENT ED: Denies ear pain Cardiovascular Cardiovascular: Reports as per HPI and chest pain; Denies palpitations or racing heartbeat Respiratory/Chest Respiratory/Chest: Denies cough or dyspnea Gastrointestinal Gastrointestinal: Denies abdominal pain Genitourinary Genitourinary ED: Denies dysuria or hematuria Musculoskeletal Musculoskeletal: Denies arthralgias Integumentary Denies abscess Neurologic Neurologic: Denies headache(s) Psychiatric Psychiatric: Denies anxiety Endocrine Endocrinology: Denies cold intolerance Hematologic/Lymphatic Hematologic/Lymphatic: Denies easy bleeding, easy bruising or lymphadenopathy Allergic/Immunologic Allergic/Immunologic ED: Denies mouth swelling EXAM Physical Exam Narrative Exam Narrative: 77-year-old no acute distress. Vital signs stable afebrile. Pulse ox 96% on room air no signs hypoxia. H EENT exam unremarkable. Neck nontender no JVD. Lungs clear to auscultation bilaterally. Heart regular rhythm no murmur rate about 80. Chest wall nontender. Abdomen soft nontender. Moving all 4 extremities. Calves are nontender without edema or cords. Equal symmetrical radial pulses. Back nontender. Neurologically she is awake and alert with no focal motor deficits. Const Vital Signs: 02/22/23 22:53 02/22/23 23:49 02/22/23 23:52 Temperature 97.4 F L Temperature Source Temporal Pulse Rate 92 81 Respiratory Rate 16 18 Blood Pressure 160/120 H 144/54 H Blood Pressure Mean 133 84 Pulse Ox 96 96 96 Oxygen Delivery Method Room Air Room Air Room Air 02/23/23 00:54 02/23/23 01:00 02/23/23 02:00 Temperature Temperature Source Pulse Rate 89 85 90 Respiratory Rate 25 H 16 19 H Blood Pressure 140/67 H 160/79 H 161/72 H Blood Pressure Mean 91 106 101 Pulse Ox 97 96 96 Oxygen Delivery Method Room Air Room Air 02/23/23 03:00 02/23/23 04:00 02/23/23 05:10 Temperature Temperature Source Pulse Rate 88 85 82 Respiratory Rate 18 18 20 H Blood Pressure 151/84 H 154/81 H 136/77 H Blood Pressure Mean 106 105 96 Pulse Ox 96 95 96 Oxygen Delivery Method Room Air Room Air Positive well nourished and well developed; Negative for cachectic, contractures or unkempt General Appearance ED: well developed and NAD; Negative for unkempt, cachectic, contractures or pallor Nutritional Appearance: Negative for cachectic HEENT Reports moist mucous membranes normocephalic and atraumatic; Negative for trauma or tenderness Eyes PERRL and EOMs intact bilaterally General Eye ED: Negative for pale conjunctiva or scleral icterus Neck no lymphadenopathy, supple and no JVD General: Negative for tenderness Chest Wall inspection of chest normal and palpation of chest normal Resp normal respiratory effort and clear to auscultation bilaterally Effort and Inspection: Negative for respiratory distress Auscultation: Negative for rales, rhonchi or wheezes Cardio regular rate, regular rhythm, S1 normal heart sound, S2 normal heart sound and no murmurs Peripheral Pulses: pulses 2+ throughout GI normal to inspection, nondistended, normoactive bowel sounds, soft to palpation, non-tender, non-distended and no masses Auscultation: Negative for hyperactive bowel sounds Palpation: Negative for splenomegaly, mass or other Back/Spine no CVA tenderness and no thoracic nor lumbar tenderness General Back: Negative for CVA tenderness Cervical Spine: Negative for cervical spine tenderness Extremity normal to inspection General Extremety ED: Negative for edema or pulses abnormal General Extremity: Negative for edema or pulses abnormal Neuro oriented x3 and CN's II-XII intact bilaterally Sensorium / Orientation: awake, alert, oriented to person, oriented to place and oriented to time; Negative for confused, lethargic or stuporous Motor Exam: strength 5/5 throughout Psych mental status grossly normal Appearance: Negative for unkempt Attitude: No agitated Mood & Affect: Negative for depressed, anxious or tearful Skin no rashes or lesions noted and no wounds General Skin Exam: Negative for jaundice or pallor Rashes: No rashes noted Trauma: Negative for abrasion or laceration Heart Score History: Slightly/Non-Suspicious ECG: Normal Age: >/= 65 years Risk Factors: >/= 3 Risk Factors or History of CAD Troponin: </= Normal Limit Score: 4 MDM MDM MDM Narrative Medical decision making narrative: 77-year-old female with atypical nonexertional chest pain. Does have a history of coronary disease with 1 stent placed about 20 years ago. Benign exam. Not reproducible. No history of DVT or PE or risk factors. Does not appear to be musculoskeletal. Does not sound like reflux. Repeat exam patient is doing well at 1:05 AM. She will have a 2-hour troponin. We have gone over her initial labs, 2 EKGs and x-ray all of which have been basically unremarkable. Repeat exam patient is doing well at 6:30 AM. She had extended stay due to volume and acuity in the department overnight. Currently she feels fine. Her blood pressures are stable. She is symptom-free. She has not had recent exertional chest pain. She had a heart cath 3 years ago which was no significant findings when she was in [place]. She has not had any recent cardiac work-up. She will follow-up with her primary care physician Dr. Prather. He can get her scheduled for a stress test for atypical chest discomfort. Or have her see a data warehouse administrator. The pain is not classic for cardiac etiology. Given her work-up adding it safer to be discharged home. She knows to return if feeling worse. Worsening or increasing pain or frequency or intensity. The pain does not radiate to her neck, back or jaw. It does not radiate to her arm. History & Record Review Discussion w/independent historian: Patient and Significant other Additional record(s) reviewed:: Prior inpatient record, Prior outpatient record, Prior ED visit and Prior labs Lab Data Attestation: I reviewed the patient's lab results. Lab results narrative: CBC shows a white count of 11. H&H 12.8 and 39. Platelets 317. Electrolytes unremarkable gap of 9 BUN and creatinine of 35 and 1.57 with a history of renal insufficiency. Glucose of 202. Initial troponin 7. 2-hour troponin was 9 without any significant change. Labs: Laboratory Results - last 24 hr 02/22/23 02/22/23 02/23/23 23:15 23:15 01:15 WBC 11.1 H RBC 4.40 Hgb 12.8 Hct 39.8 MCV 90.5 MCH 29.1 MCHC 32.2 RDW Std Deviation 46.3 H RDW Coeff of Jensen 13.8 Plt Count 317 MPV 10.7 Immature Gran % (Auto) 1.100 H Neut % (Auto) 90.6 H Lymph % (Auto) 7.5 L [place] % (Auto) 0.6 Eos % (Auto) 0.0 Baso % (Auto) 0.2 Absolute Neuts (auto) 10.0 H Absolute Lymphs (auto) 0.83 Nucleated RBC % 0 Sodium 137 Potassium 4.2 Chloride 107 Carbon Dioxide 21.0 Anion Gap 9 BUN 35 H Creatinine 1.57 H Estim Creat Clear Calc 25.61 Est GFR (MDRD) Af Amer 41 L Est GFR (MDRD) Non-Af 34 L BUN/Creatinine Ratio 22.3 H Glucose 202 H Calcium 9.3 Troponin I High Sens 7 9 Radiography Chest X-Ray - ED: 1 View, Read by ED Physician, Heart, Lungs, Mediastinum, Bony Structures, No Acute Disease and Chronic Changes Diagnostic Testing: Clinical Impression(s) from Imaging Studies Chest X-Ray 02/22/23 23:25 IMPRESSION: No acute intrathoracic abnormality. Electronically Signed: Rebecca Olvera MD at 0:55 EDT , Chest x-ray, portable, single view shows no acute abnormality. Normal mediastinum. Normal cardiac silhouette. Interpreted by myself. Rhythm Strip Rhythm Strip: Sinus Rhythm Rate: 88 Ectopy: None EKG Initial EKG: Attestation: I personally reviewed and interpreted this EKG as follows: Interpretation: Sinus Rhythm and No Acute Injury Pattern Comments: Normal sinus rhythm rate 88 no acute signs of OK or ischemia. Old inferior OK. Follow-up EKG: Attestation: I personally reviewed and interpreted this EKG as follows: Interpretation: Sinus Rhythm and No Acute Injury Pattern Comments: Normal sinus rhythm rate of 86. Old OK. No change from the first EKG tonight. Prior EKG tracings: available for review Prior: Unchanged Discharge Plan Triage Chief Complaint: Chest Pain ED Provider: Son Walker Dx/Rx/DC Orders Clinical Impression: Atypical chest pain, Hx of heart artery stent, History of coronary artery disease Instructions: ED Chest Pain, Uncertain Cause Prescriptions: No Action ropinirole 1 mg tablet PO pravastatin 40 mg tablet PO amlodipine 5 mg tablet PO losartan 50 mg tablet PO celecoxib 200 mg capsule PO metoprolol succinate 50 mg tablet extended release 24 hr PO aspirin [Adult Aspirin Regimen] 81 mg tablet,delayed release (DR/EC) 81 mg PO DAILY multivitamin Tablet 1 tab PO DAILY methylprednisolone 4 mg tablets,dose pack See Rx Instructions PO PER PKG DIR Qty: 21 0RF Rx Instructions: PO PER PKG DIR cephalexin [cephalexin] 500 MG capsule 500 mg PO TID Qty: 21 0RF hydrocodone-acetaminophen [hydrocodone-acetaminophen] 5-325 mg tablet 1 tab PO Q6H PRN PRN (Reason: Pain) 3 Days Qty: 10 0RF sulfamethoxazole-trimethoprim [sulfamethoxazole-trimethoprim] 800-160 mg tablet 1 tab PO BID Qty: 14 0RF Primary Care Provider: Diogenes Prather Chi Referrals: Diogenes Prather Chi, MD [Primary Care Provider] - As soon as possible Activity Restrictions/Additional Instructions: No specific cause for your chest pain. Your labs, chest x-ray and EKGs were unremarkable. Follow-up your primary care physician he can get you scheduled for an outpatient stress test or have you see a data warehouse administrator. Continue your current medications. Return if the chest pain is getting worse or you are developing increasing symptoms and increasing intensity and duration. Continue your normal medications and your daily aspirin. Disposition Disposition: Home, Self Care
[2023-02-23 01:45] LABS: Troponin-I HS 9 pg/mL (3.0-54.0)
== END 2023-02-23 06:38 | disposition home or self-care (01) ==
PROVIDERS: Emergency Provider Emergency Medicine; PCP Family Medicine Geriatric Medicine; Visit Provider Emergency Medicine
DX: R07.89 Other chest pain (principal); I25.10 Atherosclerotic heart disease of native coronary artery without angina pectoris; Z95.5 Presence of coronary angioplasty implant and graft; Z87.891 Personal history of nicotine dependence; I10 Essential (primary) hypertension; Z79.82 Long term (current) use of aspirin; M19.90 Unspecified osteoarthritis, unspecified site; Z96.653 Presence of artificial knee joint, bilateral; Z13.89 Encounter for screening for other disorder; E78.5 Hyperlipidemia, unspecified; N39.0 Urinary tract infection, site not specified
CPT/HCPCS: 36415; 71045; 80048; 80053; 80061; 82306; 84443; 84484; 85025; 86803; 87086; 87088; 93005; 99283; A4216

== ENCOUNTER → 2023-02-22 | Outpatient (CLI) | payer MEDICARE, SELFPAY ==
[2023-02-22 13:23] LABS: Absolute Lymphocyte Count 2.22 X10^3/uL (0.83-4.51); Absolute Neutrophil Count 6.7 X10^3/uL (2.0-7.7); Basophil# 0.06 X10^3/uL; Basophil% 0.6 % (0-1); Eosinophil# 0.47 X10^3/uL; Eosinophils% 4.6 % (0-5); Hematocrit 42.6 % (37-47); Hemoglobin 13.4 g/dL (12.0-15.0); Lymphocyte # 2.22 X10^3/ul (0.83-4.51); Lymphocyte % 21.7 % (19-41); Mean Corp Hgb Conc 31.5 g/dL (32-36); Mean Corpuscular Hgb 28.6 pg (27.0-32.0); Mean Platelet Vol. 10.9 fl (6.2-12.0); Monocyte% 6.8 % (0-10); NRBC Flagged by Analyzer 0 % (0-5); Neutrophil # 6.73 X10^3/uL (2.7-7.7); Neutrophil % 65.8 % (47-70); Platelet Count 338 K/mm3 (150-450); RBC Distribution Width CV 13.7 % (11.6-14.6); Red Blood Count 4.68 M/mm3 (4.2-5.4); White Blood Count 10.2 K/mm3 (4.4-11.0)
[2023-02-22 14:08] LABS: AST(SGOT) 22 U/L (15-37); Alanine Aminotransfer ALT/SGPT 21 U/L (13-56); Albumin, Serum 3.9 g/dL (3.2-5.0); Alkaline Phosphatase 78 U/L (45-117); Anion Gap 9 (5-15); BUN 26 mg/dL (7-18); BUN/Creat Ratio 19.3 RATIO (10-20); Calcium,Total 8.9 mg/dL (8.5-10.1); Chloride 109 mmol/L (98-107); Cholesterol 170 mg/dL (200); Creatinine, Serum 1.35 mg/dL (0.55-1.02); EST Glomerular Filtration Rate 41 mL/min (>60); Est Glom Filt Rate - Afr Amer 49 mL/min (>60); Globulin 3.8 g/dL (2.2-4.2); Glucose 113 mg/dL (74-106); High Density Lipoprotein 48 mg/dL; Potassium 4.2 mmol/L (3.5-5.1); Protein, Total 7.7 g/dL (6.4-8.2); Sodium Level 140 mmol/L (136-145); Thyroid Stim Hormone (TSH) 3.21 uIU/mL (0.358-3.74); Triglycerides 157 mg/dL; Very Low Density Lipoprotein 31 mg/dL (5-40)
[2023-02-22 14:13] LABS: Hepatitis C Antibody Non-Reactive (Nonreactive); Vitamin D,25 Hydroxy 66.6 ng/mL
== END | disposition home or self-care (01) ==
LOC: POLAB3 12:13
PROVIDERS: PCP Family Medicine; Visit Provider Family Medicine Geriatric Medicine
DX: Z13.89 Encounter for screening for other disorder (principal); E78.5 Hyperlipidemia, unspecified; I10 Essential (primary) hypertension; N39.0 Urinary tract infection, site not specified
CPT/HCPCS: 36415; 80053; 80061; 82306; 84443; 85025; 86803; 87086; 87088

== ENCOUNTER → 2023-03-09 | Outpatient (CLI) | payer MEDICARE, SELFPAY ==
--- NOTE | 2023-03-09 08:30 | MRI_ITS ---
STUDY: MRI RIGHT HIP REASON FOR EXAM: Female, 77 years old. Right hip pain for several months. TECHNIQUE: Standardized fat and water weighted pulse sequences were obtained in all 3 orthogonal planes. COMPARISON: X-rays of the right hip dated October 25, 2022. FINDINGS: Mild loss of articular cartilage of both hips with hip effusions (coronal series 4 images 11-17). . Normal gluteus minimus, medius and iliopsoas tendons and distal insertions. Bilateral greater trochanteric bursitis, right greater than left (coronal series 4 images 15-19). Normal superior and inferior pubic rami. Normal pubic symphysis. Normal ischial tuberosity. Normal origin of the hamstring tendons. Normal visualized iliac wing, sacroiliac joint, and sacral ala. Normal visualized soft tissue structures of the pelvis. 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 Bilateral greater trochanteric bursitis, right greater than left. No other abnormality identified. Electronically Signed: Gurjit Means MD at 13:18 EDT ,
== END | disposition home or self-care (01) ==
PROVIDERS: PCP Family Medicine Geriatric Medicine; Referring Provider Family Medicine Geriatric Medicine; Visit Provider Family Medicine Geriatric Medicine
DX: M25.551 Pain in right hip (principal)
CPT/HCPCS: 73721

== ENCOUNTER → 2023-03-29 | Outpatient (CLI) | payer MEDICARE, SELFPAY ==
--- NOTE | 2023-03-30 17:27 | STRESSREP ---
Stress Test Report Pharmacologic myocardial perfusion stress test. 77-year-old lady with a history of chest pain Resting EKG demonstrates sinus bradycardia with a rate of 55 bpm. Resting blood pressure is 142/70 mmHg. 0.4 mg of regadenoson was infused per usual protocol followed by rapid intravenous saline flush injection. Continuous EKG monitoring was performed. The maximum heart rate was 77 bpm which was 53% of max impacted heart rate the maximum workload was 1 metabolic equivalent. At rest there were no ST or T wave changes noted to suggest ischemia and at peak infusion nonspecific ST changes were noted which did not meet the criteria for ischemia. No clinical angina is noted. The final blood pressure was 130/68 mmHg. Myocardial perfusion protocol. 15.0 mCi of technetium 99m sestamibi was injected at rest. 0.4 mg of regadenoson was infused per usual protocol. At peak infusion 44.7 mCi of technetium 99m sestamibi was injected stress images were obtained stress and rest images were reconstructed and compared in the short axis vertical long and horizontal long axis. Gated images were also obtained. Perfusion SPECT analysis: Review of the stress images demonstrate normal uptake of tracer noted in all areas of the myocardium. The resting images similar demonstrated normal uptake of tracer noted in all areas of the myocardium. No areas of reversibility are noted to suggest ischemia and no previous infarct is noted. Gated SPECT analysis: The gated ejection fraction is 82%. Conclusion: Normal pharmacologic myocardial perfusion stress test. Preserved ejection fraction.
== END | disposition home or self-care (01) ==
PROVIDERS: PCP Family Medicine Geriatric Medicine; Referring Provider Family Medicine Geriatric Medicine; Visit Provider Family Medicine Geriatric Medicine
DX: R07.9 Chest pain, unspecified (principal)
CPT/HCPCS: 78452; 93017; A9500; A4216; J2785

== ENCOUNTER 2023-04-11 08:44 | Outpatient (RCR) | payer MEDICARE, SELFPAY ==
--- NOTE | 2023-04-11 10:17 | HP.PTEVAL_ITS ---
Patient's Visit Information Visit Information Visit Information: REMEDIOS MILLER is a 77 year old F referred to Physical Therapy by Dr. Jerrell Holliday MD with a diagnosis of R hip bursitis. Date of Evaluation: 04/11/23 Physical Therapist: Wade Wu DPT Visit Plan Frequency: 1x/Week Duration: 1 Week Plan: Pt. reports not being able to come to PT due to high copays. 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 I gave her some core, hip and ankle/foot intrinsic strengthening exercises to work on at this point in time. She plans on work on this until following up with physician in May. If her symptoms worsen she is to follow up with physician. Subjective Subjective: Pt. is here today for her initial evaluation with diagnosis of Trochanter Bursitis R hip. Pt. arrives with FWW today, she report starting using the walker ~2 months ago to help with the pain. Pt. reports having injection which did help her R hip, but is now having more pain in her low back. No mech of injury. Better: sitting, lying down. Stand: worse prolonged, walking. Pt. does not use stairs currently. Pt. has not done any exercises recently for her R hip and back. Pt. lives by her self in an apartment. Denies N/T, no pain in to her distal LEs. PMH of B knee replacement- good results. Pt. is also concerned about her L arch of her foot, she think this may be causing her issues as well. Pain R hip: Pain Intensity (Out of 10): 5 Pain Intensity Range: 5 and 10 Objective Objective: POSTURE: Pt. has general flexed posture, anterior pelvic tilt noted. Pt. has a marked B pes planus, L worse than R. Pt. has close to full navicular drop on the L side. PALPATION: Pt. has some mild tenderness along R greater trochanter. Pt. has pain at lumbar spine along erector spinae as well. NEURO: Pt. has normal sensation in BLEs Pt. has 2+ patellar and achilles DTR bilaterally. Pt. has difficulty with rising on toes, needs balance aide. ROM: LUMBAR SPINE: flexion mod loss increase NW, extension min loss mild increase NW, SB mod loss NE, rotation min/mod loss NE. Pt. has Tightness in B hips. Pt. Has tight hip ER, but only slightly. Pt. has tight IT band and HS bilaterally. MMT: RLE: ankle 4+/5 throughout; knee: ext 4+/5, flexion 4/5; abd 3+/5; hip ext 3+/5. LLE: ankle 4/5 throughout; knee: 4/5 throughout; hip: flexion 4/5, abd 4/5, ext 4/5. Core strength: poor. GAIT: pt. ambulates with FWW with flexed posture. Pt. has marked lateral hip deviation (lateral sway). Pt. has marked L pes planus. heavy use of AD. Pt. attempted to walk without AD. Increased deviations from above and fairly unsteady, attempted to reach out for mendez and railings when available. Balance/Special Test Scores Lower Extremity Functional Score: 29 Goals Goal 1:: STG: Pt. to be I with HEP for BLE strengthening, core strengthening. (HEP instructed today) Goal Time Frame: 1 Week Rehabilitation Potential Physical Therapy Diagnosis: Pt. has signs and symptoms consistent with R hip bursitis, but also most likely a spinal pathology, possible spinal stenosis. She also has L pes planus. She would benefit from PT to address the above limitations. Rehabilitation Potential: Fair Anticipated Interventions Patient/Client Instruction: Educate patient on: Condition, Plan of Care, Risk Factors and Benefits of Fitness Program For the Purpose of:: To decrease swelling/inflammation, To increase ROM, To improve nutrient delivery to tissue, To increase oxygenation perfusion, To improve muscle performance and motor function, To improve ability to perform ADL's and To increase tolerance to activity/condition/position Therapeutic Exercise to Include: Strength training, Power training, Balance training, Body mechanics, Postural training and Flexibilty training For the Purpose of:: To decrease pain, To increase ROM, To improve nutrient delivery to tissue, To increase oxygenation perfusion and To improve muscle performance and motor function Text: Thank you for the opportunity to evaluate your patient. For Medicare and Medicare HMO plans, please review the plan of care and approve it. It will need to be FAXED BACK to us at [phone] for Medicare purposes. For Medicare only, by signing this I certify the plan of care. Please let me know if there are questions or concerns regarding this plan of care. Physician Signature: Date:_
== END 2023-04-11 10:25 | disposition home or self-care (01) ==
LOC: PT 08:44
PROVIDERS: PCP Family Medicine Geriatric Medicine; Referring Provider Specialist; Visit Provider Specialist
DX: M70.61 Trochanteric bursitis, right hip (principal)
CPT/HCPCS: 97110; 97161

== ENCOUNTER 2023-04-25 20:49 | Emergency (ER) | payer MEDICARE, SELFPAY ==
[2023-04-25 20:50] VITALS: BP 148/82; PULSE 70; RESP 28; TEMP 35.6; O2SAT 99; BMI 40.5
--- NOTE | 2023-04-25 21:11 | EKG12_ITS ---
Test Reason : CP Blood Pressure : / mmHG Vent. Rate : 081 BPM Atrial Rate : 081 BPM P-R Int : 150 ms QRS Dur : 076 ms QT Int : 366 ms P-R-T Axes : 015 -16 027 degrees QTc Int : 425 ms Normal sinus rhythm Inferior infarct , age undetermined Abnormal ECG Confirmed by MARIELOS MARTINEZ, CHOCO ([id number]), health editor CHARLINE BAL ([id number]) on 04/27/2023 9:31:12 AM Referred By: OSEAS Confirmed By:CHOCO ARCEO MD
--- NOTE | 2023-04-25 21:12 | EDS_ITS ---
HPI History of Present Illness Chief Complaint: Chest Pain Detail of Chief Complaint: Chest pain Informant: patient Narrative Narrative: Patient presents with right-sided chest pain that started this morning when she awoke. She describes sharp stabbing pain with deep breath. She has had similar pain years ago and was diagnosed with pleurisy. She denies recent travel or surgery. No history of PE or DVT. She denies any shortness of breath. Denies recent illness. Patient denies any falls or trauma. [facility] Medical History Arthritis Cervical radiculopathy Cervical strain Former smoker Heart disease HTN (hypertension) Migraines Osteoporosis Shoulder pain Strain of right biceps Strain of right shoulder Strain of right trapezius muscle Home Medications amlodipine 5 mg tablet mg PO 04/20/21 [History Last Taken Unknown] aspirin 81 mg tablet,delayed release (Adult Aspirin Regimen) 81 mg PO DAILY 04/20/21 [History Last Taken Unknown] celecoxib 200 mg capsule mg PO 04/20/21 [History Last Taken Unknown] losartan 50 mg tablet mg PO 04/20/21 [History Last Taken Unknown] metoprolol succinate 50 mg tablet,extended release 24 hr mg PO 04/20/21 [History Last Taken Unknown] multivitamin 1 tab PO DAILY 04/20/21 [History Last Taken Unknown] pravastatin 40 mg tablet mg PO 04/20/21 [History Last Taken Unknown] ropinirole 1 mg tablet mg PO 04/20/21 [History Last Taken Unknown] cephalexin 500 mg capsule 500 mg PO TID #21 CAPSULES 01/20/22 [Rx Last Taken Unknown] methylprednisolone 4 mg tablets in a dose pack See Rx Instructions PO PER PKG DIR #21 tabs 06/02/22 [Rx Last Taken Unknown] hydrocodone-acetaminophen 5-325mg 5mg-325mg 1 tab PO Q6H PRN PRN Pain 3 days #10 TABLETS 10/25/22 [Rx Last Taken Unknown] sulfamethoxazole 800 mg-trimethoprim 160 mg tablet 1 tab PO BID #14 TABLETS 10/25/22 [Rx Last Taken Unknown] Allergy/AdvReac Type Severity Reaction Status Date / Time No Known Allergies Allergy Verified 10/25/22 08:57 Surgical History History of cataract surgery History of total bilateral knee replacement Hx of heart artery stent Social History Smoking Status: Former smoker alcohol intake: current alcohol intake frequency: holidays/special occasions only ROS ROS ED Review of Systems ROS Unobtainable: other Constitutional Constitutional ED: Reports lethargy; Denies chills, fever(s), sweats or weight loss Eyes Eyes: Denies blurry vision, change in vision or diplopia ENT ENT ED: Denies rhinorrhea or sore throat Cardiovascular Cardiovascular: Reports chest pain; Denies orthopnea or racing heartbeat Respiratory/Chest Respiratory/Chest: Denies cough, dyspnea, dyspnea on exertion, orthopnea or sputum Gastrointestinal Gastrointestinal: Denies abdominal pain, diarrhea, nausea or vomiting Genitourinary Genitourinary ED: Denies dysuria, hematuria or urinary frequency Musculoskeletal Musculoskeletal: Denies arthralgias, back pain, myalgias or neck pain Integumentary Denies abscess, Abrasions or rash Neurologic Neurologic: Denies headache(s) or weakness Psychiatric Psychiatric: Denies anxiety, depression or suicidal thoughts Endocrine Endocrinology: Denies polydipsia, polyphagia or polyuria Hematologic/Lymphatic Hematologic/Lymphatic: Denies easy bleeding, easy bruising or lymphadenopathy Allergic/Immunologic Allergic/Immunologic ED: Denies mouth swelling, tongue swelling or urticaria EXAM Physical Exam Const Vital Signs: 04/25/23 20:50 04/25/23 20:50 04/25/23 20:57 Temperature 96.1 F L 96.1 F L Temperature Source Temporal Temporal Pulse Rate 70 70 Respiratory Rate 28 H 28 H Respiratory Effort Normal Blood Pressure 148/82 H 148/82 H Blood Pressure Mean 104 104 Pulse Ox 99 99 Oxygen Delivery Method Room Air Room Air 04/25/23 21:15 Temperature Temperature Source Pulse Rate Respiratory Rate Respiratory Effort Blood Pressure Blood Pressure Mean Pulse Ox Oxygen Delivery Method Room Air Positive well nourished and well developed General Appearance ED: well developed and NAD HEENT Reports TM's clear and moist mucous membranes normocephalic and atraumatic; Negative for trauma or tenderness Tympanic Membrane ED: Yes TM's clear Eyes PERRL and EOMs intact bilaterally General Eye ED: Negative for pale conjunctiva or scleral icterus Neck no lymphadenopathy, supple and no JVD General: Negative for tenderness Chest Wall inspection of chest normal and palpation of chest normal Chest: Negative for tenderness Resp normal respiratory effort and clear to auscultation bilaterally Effort and Inspection: Negative for respiratory distress or pain with movement Auscultation: Negative for rhonchi, wheezes or diminished lung sounds Cardio regular rate, regular rhythm, S1 normal heart sound, S2 normal heart sound and no murmurs Peripheral Pulses: pulses 2+ throughout GI normal to inspection, nondistended, normoactive bowel sounds, soft to palpation, non-tender, non-distended and no masses Back/Spine no CVA tenderness and no thoracic nor lumbar tenderness Extremity normal to inspection General Extremety ED: Negative for edema General Extremity: Negative for edema Neuro oriented x3, CN's II-XII intact bilaterally, no sensory deficits noted and gait normal Sensorium / Orientation: awake, alert, oriented to person, oriented to place and oriented to time Motor Exam: strength 5/5 throughout and strength abnormal Psych mental status grossly normal Skin no rashes or lesions noted and no wounds MDM MDM MDM Narrative Medical decision making narrative: Patient presents with right-sided pleuritic chest pain. History of pleurisy. EKG obtained showed a sinus rhythm with no acute ST segment changes. CBC with differential showed a white count 12.2 with hemoglobin of 13 and platelet count of 277. Chemistries unremarkable. Troponin normal at 5. D-dimer elevated therefore CTA chest was obtained to rule out PE results of which are pending. Care of patient turned over to evening physician awaiting CTA results and final disposition. Lab Data Attestation: I reviewed the patient's lab results. Labs: Laboratory Results - last 24 hr 04/25/23 21:10 WBC 12.2 H RBC 4.48 Hgb 13.1 Hct 41.1 MCV 91.7 MCH 29.2 MCHC 31.9 L RDW Std Deviation 47.5 H RDW Coeff of Jensne 14.0 Plt Count 277 MPV 10.6 Immature Gran % (Auto) 0.500 Neut % (Auto) 77.6 H Lymph % (Auto) 13.1 L [place] % (Auto) 6.9 Eos % (Auto) 1.6 Baso % (Auto) 0.3 Absolute Neuts (auto) 9.5 H Absolute Lymphs (auto) 1.60 Nucleated RBC % 0 D-Dimer Quant (PE/DVT) 2.08 H* Sodium 139 Potassium 4.0 Chloride 110 H Carbon Dioxide 22.0 Anion Gap 7 BUN 28 H Creatinine 1.58 H Estim Creat Clear Calc 25.45 Est GFR (MDRD) Af Amer 41 L Est GFR (MDRD) Non-Af 34 L BUN/Creatinine Ratio 17.7 Glucose 156 H Calcium 8.7 Troponin I High Sens 5 Radiography Chest X-Ray - ED: 1 View Diagnostic Testing: Clinical Impression(s) from Imaging Studies Chest X-Ray 04/25/23 21:55 IMPRESSION: Limited degree of inspiration with minimal bibasilar atelectasis. No pneumonia or pulmonary edema. Electronically Signed: Chris Cano MD at 22:27 EDT , 1 view chest x-ray obtained interpreted by myself as no evidence of pneumothorax or infiltrate or acute disease process. Radiology in agreement. EKG Initial EKG: Attestation: I personally reviewed and interpreted this EKG as follows: Comments: Sinus rhythm with no acute ST segment changes, ventricular rate of 61 bpm Discharge Plan Triage Chief Complaint: Chest Pain ED Provider: Doreen Cohen Dx/Rx/DC Orders Clinical Impression: Chest pain, pleuritic Prescriptions: No Action ropinirole 1 mg tablet PO pravastatin 40 mg tablet PO amlodipine 5 mg tablet PO losartan 50 mg tablet PO celecoxib 200 mg capsule PO metoprolol succinate 50 mg tablet extended release 24 hr PO aspirin [Adult Aspirin Regimen] 81 mg tablet,delayed release (DR/EC) 81 mg PO DAILY multivitamin Tablet 1 tab PO DAILY methylprednisolone 4 mg tablets,dose pack See Rx Instructions PO PER PKG DIR Qty: 21 0RF Rx Instructions: PO PER PKG DIR cephalexin [cephalexin] 500 MG capsule 500 mg PO TID Qty: 21 0RF hydrocodone-acetaminophen [hydrocodone-acetaminophen] 5-325 mg tablet 1 tab PO Q6H PRN PRN (Reason: Pain) 3 Days Qty: 10 0RF sulfamethoxazole-trimethoprim [sulfamethoxazole-trimethoprim] 800-160 mg tablet 1 tab PO BID Qty: 14 0RF Primary Care Provider: Diogenes Prather Chi Referrals: Diogenes Prather Chi, MD [Primary Care Provider] -
[2023-04-25 21:29] LABS: Absolute Neutrophil Count 9.5 X10^3/uL (2.0-7.7); Basophil# 0.04 X10^3/uL; Basophil% 0.3 % (0-1); Eosinophils% 1.6 % (0-5); Hematocrit 41.1 % (37-47); Hemoglobin 13.1 g/dL (12.0-15.0); Lymphocyte % 13.1 % (19-41); Mean Corp Hgb Conc 31.9 g/dL (32-36); Mean Corpuscular Hgb 29.2 pg (27.0-32.0); Mean Corpuscular Volume 91.7 fL (81-99); Mean Platelet Vol. 10.6 fl (6.2-12.0); Monocyte# 0.84 X10^3/uL; Monocyte% 6.9 % (0-10); NRBC Flagged by Analyzer 0 % (0-5); Neutrophil # 9.46 X10^3/uL (2.7-7.7); Neutrophil % 77.6 % (47-70); Platelet Count 277 K/mm3 (150-450); RBC Distribution Width SD 47.5 fl (35.1-43.9); Red Blood Count 4.48 M/mm3 (4.2-5.4); White Blood Count 12.2 K/mm3 (4.4-11.0)
[2023-04-25 21:41] LABS: Anion Gap 7 (5-15); BUN 28 mg/dL (7-18); BUN/Creat Ratio 17.7 RATIO (10-20); Calcium,Total 8.7 mg/dL (8.5-10.1); Chloride 110 mmol/L (98-107); Creatinine, Serum 1.58 mg/dL (0.55-1.02); EST Glomerular Filtration Rate 34 mL/min (>60); Est Glom Filt Rate - Afr Amer 41 mL/min (>60); Estimated Creatinine Clearance 25.45 ml/min; Glucose 156 mg/dL (74-106); Sodium Level 139 mmol/L (136-145); Troponin-I HS (w/2H Reflex) 5 pg/mL (3.0-54.0)
[2023-04-25] MEDS: Aspirin 81 MG TAB.CHEW 324 MG PO (21:41)
[2023-04-25] MEDS: 0.9% Normal Saline 1,000 ML 150 ML IV (21:41)
[2023-04-25 21:42] LABS: D-Dimer Quantitative (DVT/PE) 2.08 FEU/ug/m (0.27-0.49)
--- NOTE | 2023-04-25 21:55 | RAD_ITS ---
EXAM: XR CHEST, 1 VIEW CLINICAL INDICATION: chest pain TECHNIQUE: Frontal view of the chest. COMPARISON: Previous chest radiograph of 02/22/2023. FINDINGS: LUNGS AND PLEURAL SPACES: Limited degree of inspiration with crowding of the basilar bronchovascular markings. Discoid atelectasis at the lung bases. No consolidation or edema. No pneumothorax. No effusion. HEART: Upper normal heart size with normal pulmonary vasculature. MEDIASTINUM: Stable calcification and mild elongation of the thoracic aorta. No mediastinal widening. BONES/JOINTS: Lower cervical and thoracic degenerative spurring. Mild degenerative spurring about the left glenohumeral joint space. SOFT TISSUES: Mild elevation of the right hemidiaphragm again noted. RAD/Chest 1 View (Portable) IMPRESSION: Limited degree of inspiration with minimal bibasilar atelectasis. No pneumonia or pulmonary edema. Electronically Signed: Chris Cano MD at 22:27 EDT ,
--- NOTE | 2023-04-25 22:29 | CT_ITS ---
We are attempting to reach an attending provider to discuss findings. An addendum with communication details will be sent when the communication is complete. EXAM: CT ANGIOGRAPHY CHEST WITHOUT AND WITH INTRAVENOUS CONTRAST CLINICAL INDICATION: pleuritic pain, elevated d-dimer TECHNIQUE: Helically acquired angiography images were obtained of the chest without and with intravenous contrast. This CT exam was performed using one or more of the following dose reduction techniques: automated exposure control, adjustment of the mA and/or kV according to patient size, and/or use of iterative reconstruction technique. MIP reconstructed images were created and reviewed. CONTRAST: IV 100mL [id number] RADIATION DOSE: Total DLP: 454.79 mGy-cm. COMPARISON: Portable chest radiograph of this same date. FINDINGS: PULMONARY ARTERIES: Bilateral acute pulmonary emboli are present. Minimal thrombus noted within the distal aspect of the right main pulmonary artery. Small amount of nonocclusive thrombus noted within the proximal aspect of the right upper lobe apical segmental branch. Thrombus is noted within multiple subsegmental branches of the anterior segmental branch of the right upper lobe pulmonary artery. Thrombus subtotally fills the posterior segmental branch of the right upper lobe pulmonary artery, with extension into subsegmental branches. Thrombus noted within the right middle lobe pulmonary artery with thrombus subtotally filling the lateral segmental branch. Thrombus is noted within the proximal aspect of the right lower lobe pulmonary artery with thrombus noted within a subsegmental branch within the medial aspect of the right lower lobe. Branching thrombus noted within a subsegmental branch of the left upper lobe apical -posterior segmental branch. Thrombus noted within a subsegmental branch of the lingular pulmonary artery. Thrombus noted within 2 of the more lateral segmental branches of the left lower lobe pulmonary artery. No mass. No pneumothorax. Main pulmonary trunk measures 3.1 cm in transverse diameter. The right main pulmonary artery measures 2.8 cm in transverse diameter while the left measures 2.8 cm in transverse diameter. No saddle embolus is noted. AORTA: Normal in caliber. No evidence of dissection. GREAT VESSELS OF AORTIC ARCH: Unremarkable. Normal in caliber. No evidence of dissection. LUNGS AND PLEURAL SPACES: Subpleural groundglass opacities noted laterally within the right middle lobe, consistent with pulmonary infarction. Scarring and minimal traction bronchiectasis noted within the right lower lobe medially. Dependent atelectasis noted within the right lower lobe. There is a trace of pleural fluid on the right HEART: Heavy coronary artery calcification is present. No significant pericardial effusion. The right ventricle is not dilated as compared to the left. MEDIASTINUM: No hilar or mediastinal adenopathy. Small hiatal hernia is present. Esophagus is unremarkable. THYROID: Unremarkable. No thyroid lesions. BONES/JOINTS: Extensive thoracic degenerative spurring. Fusion one of the mid thoracic disc spaces. No suspicious lytic or blastic abnormality. INTRAPERITONEAL SPACE: Simple cysts are noted within the liver and require no follow-up. Visualized portions of the gallbladder, pancreatic tail, spleen and adrenal glands are unremarkable. No pneumoperitoneum is noted. CT/CTA Chest W/WO Contrast IMPRESSION: Multiple bilateral pulmonary emboli, more numerous on the right, with a small associated pulmonary infarction laterally within the right middle lobe. No saddle embolus. No findings of right ventricular strain. Small hiatal hernia. Nonstandard communication protocol initiated. Electronically Signed: Chris Cano MD at 23:39 EDT ,
[2023-04-25 23:20] LABS: Reflex Troponin-HS? (from REC) Y
[2023-04-26 00:07] VITALS: BP 140/74; PULSE 69; RESP 18; O2SAT 95
== END 2023-04-26 00:21 | disposition home or self-care (01) ==
PROVIDERS: Emergency Provider Emergency Medicine; PCP Family Medicine Geriatric Medicine; Visit Provider Emergency Medicine
DX: R07.81 Pleurodynia (principal); Z87.891 Personal history of nicotine dependence; Z95.5 Presence of coronary angioplasty implant and graft
CPT/HCPCS: 71045; 71275; 80048; 84484; 85025; 85379; 93005; 99284; Q9967; A4216

== ENCOUNTER → 2023-05-30 | Outpatient (CLI) | payer MEDICARE, SELFPAY ==
[2023-05-30 11:03] LABS: Absolute Lymphocyte Count 1.84 X10^3/uL (0.83-4.51); Absolute Neutrophil Count 7.1 X10^3/uL (2.0-7.7); Basophil# 0.04 X10^3/uL; Basophil% 0.4 % (0-1); Eosinophil# 0.28 X10^3/uL; Eosinophils% 2.8 % (0-5); Hematocrit 41.6 % (37-47); Hemoglobin 13.2 g/dL (12.0-15.0); Lymphocyte # 1.84 X10^3/ul (0.83-4.51); Lymphocyte % 18.4 % (19-41); Mean Corp Hgb Conc 31.7 g/dL (32-36); Mean Corpuscular Hgb 29.5 pg (27.0-32.0); Mean Corpuscular Volume 92.9 fL (81-99); Mean Platelet Vol. 10.4 fl (6.2-12.0); Monocyte# 0.63 X10^3/uL; Monocyte% 6.3 % (0-10); NRBC Flagged by Analyzer 0 % (0-5); Neutrophil # 7.14 X10^3/uL (2.7-7.7); Neutrophil % 71.5 % (47-70); Platelet Count 330 K/mm3 (150-450); RBC Distribution Width SD 47.4 fl (35.1-43.9); Red Blood Count 4.48 M/mm3 (4.2-5.4)
[2023-05-30 11:31] LABS: AST(SGOT) 16 U/L (15-37); Alanine Aminotransfer ALT/SGPT 22 U/L (13-56); Albumin, Serum 3.5 g/dL (3.2-5.0); Alkaline Phosphatase 71 U/L (45-117); Anion Gap 5 (5-15); BUN 25 mg/dL (7-18); BUN/Creat Ratio 19.2 RATIO (10-20); Calcium,Total 9.4 mg/dL (8.5-10.1); Chloride 106 mmol/L (98-107); Cholesterol 177 mg/dL (200); EST Glomerular Filtration Rate 42 mL/min (>60); Est Glom Filt Rate - Afr Amer 51 mL/min (>60); Globulin 3.5 g/dL (2.2-4.2); Glucose 107 mg/dL (74-106); High Density Lipoprotein 48 mg/dL; Potassium 4.3 mmol/L (3.5-5.1); Sodium Level 138 mmol/L (136-145); Thyroid Stim Hormone (TSH) 4.12 uIU/mL (0.358-3.74); Triglycerides 122 mg/dL; Very Low Density Lipoprotein 24 mg/dL (5-40)
[2023-05-30 12:51] LABS: Vitamin D,25 Hydroxy 61.5 ng/mL
== END | disposition home or self-care (01) ==
PROVIDERS: PCP Family Medicine Geriatric Medicine; Visit Provider Family Medicine Geriatric Medicine
DX: I10 Essential (primary) hypertension (principal); E55.9 Vitamin D deficiency, unspecified
CPT/HCPCS: 36415; 80053; 80061; 82306; 84443; 85025

== ENCOUNTER → 2023-06-29 | Outpatient (CLI) | payer MEDICARE, SELFPAY ==
[2023-06-29 11:47] LABS: Thyroid Stim Hormone (TSH) 4.92 uIU/mL (0.358-3.74)
== END | disposition home or self-care (01) ==
LOC: POLAB3 09:18
PROVIDERS: PCP Family Medicine Geriatric Medicine; Visit Provider Family Medicine Geriatric Medicine
DX: E03.9 Hypothyroidism, unspecified (principal)
CPT/HCPCS: 36415; 84443

== ENCOUNTER → 2023-08-18 | Outpatient (CLI) | payer MEDICARE, SELFPAY ==
[2023-08-18 11:01] LABS: Thyroid Stim Hormone (TSH) 4.07 uIU/mL (0.358-3.74)
== END | disposition home or self-care (01) ==
LOC: POLAB3 09:20
PROVIDERS: PCP Family Medicine Geriatric Medicine; Visit Provider Family Medicine Geriatric Medicine
DX: E03.9 Hypothyroidism, unspecified (principal)
CPT/HCPCS: 36415; 84443

== ENCOUNTER → 2023-08-31 | Outpatient (CLI) | payer MEDICARE, SELFPAY ==
[2023-08-31 10:31] LABS: Absolute Lymphocyte Count 1.85 X10^3/uL (0.83-4.51); Absolute Neutrophil Count 7.3 X10^3/uL (2.0-7.7); Basophil# 0.07 X10^3/uL; Basophil% 0.7 % (0-1); Eosinophil# 0.57 X10^3/uL; Eosinophils% 5.4 % (0-5); Hematocrit 39.9 % (37-47); Hemoglobin 12.2 g/dL (12.0-15.0); Lymphocyte # 1.85 X10^3/ul (0.83-4.51); Lymphocyte % 17.4 % (19-41); Mean Corp Hgb Conc 30.6 g/dL (32-36); Mean Corpuscular Hgb 27.9 pg (27.0-32.0); Mean Corpuscular Volume 91.1 fL (81-99); Mean Platelet Vol. 10.7 fl (6.2-12.0); Monocyte# 0.79 X10^3/uL; Monocyte% 7.4 % (0-10); NRBC Flagged by Analyzer 0 % (0-5); Neutrophil # 7.28 X10^3/uL (2.7-7.7); Neutrophil % 68.5 % (47-70); Platelet Count 319 K/mm3 (150-450); Red Blood Count 4.38 M/mm3 (4.2-5.4); White Blood Count 10.6 K/mm3 (4.4-11.0)
[2023-08-31 11:55] LABS: Vitamin D,25 Hydroxy 76.4 ng/mL
[2023-08-31 11:58] LABS: ALB/GLOB Ratio 1.1 RATIO (0.9-2.4); AST(SGOT) 17 U/L (15-37); Alanine Aminotransfer ALT/SGPT 22 U/L (13-56); Albumin, Serum 3.6 g/dL (3.2-5.0); Alkaline Phosphatase 83 U/L (45-117); Anion Gap 5 (5-15); BUN 25 mg/dL (7-18); BUN/Creat Ratio 19.7 RATIO (10-20); Calcium,Total 8.7 mg/dL (8.5-10.1); Chloride 109 mmol/L (98-107); Cholesterol 157 mg/dL (200); Creatinine, Serum 1.27 mg/dL (0.55-1.02); EST Glomerular Filtration Rate 44 mL/min (>60); Est Glom Filt Rate - Afr Amer 53 mL/min (>60); Globulin 3.3 g/dL (2.2-4.2); Glucose 97 mg/dL (74-106); High Density Lipoprotein 47 mg/dL; Potassium 4.3 mmol/L (3.5-5.1); Protein, Total 6.9 g/dL (6.4-8.2); Sodium Level 137 mmol/L (136-145); Thyroid Stim Hormone (TSH) 2.39 uIU/mL (0.358-3.74); Triglycerides 136 mg/dL; Very Low Density Lipoprotein 27 mg/dL (5-40)
== END | disposition home or self-care (01) ==
LOC: POLAB3 10:00
PROVIDERS: PCP Family Medicine Geriatric Medicine; Visit Provider Family Medicine Geriatric Medicine
DX: I10 Essential (primary) hypertension (principal); E55.9 Vitamin D deficiency, unspecified
CPT/HCPCS: 36415; 80053; 80061; 82306; 84443; 85025

== ENCOUNTER 2023-12-07 09:58 | Outpatient (CLI) | payer MEDICARE, SELFPAY ==
--- NOTE | 2023-12-07 11:00 | RAD_ITS ---
STUDY: X-RAY - RIGHT HAND, ATTENTION FIFTH FINGER REASON FOR EXAM: Female, 78 years old. PAIN TECHNIQUE: 3 views of the right fifth finger were obtained. COMPARISON: None. FINDINGS: Normal metacarpal head. Normal metacarpophalangeal joint. Normal proximal phalanx. Normal middle phalanx. Normal distal phalanx. There is degenerative arthrosis of the fifth PIP and DIP joints. There is periarticular soft tissue swelling. There is no demonstrated fracture. RAD/Finger(s) Min 2 Views IMPRESSION: Degenerative arthrosis of the fifth PIP and DIP joints. Periarticular soft tissue swelling. Electronically Signed: Ricardo Lea MD at 14:47 EST ,
[2023-12-07 11:26] LABS: Absolute Lymphocyte Count 1.72 X10^3/uL (0.83-4.51); Absolute Neutrophil Count 8.2 X10^3/uL (2.0-7.7); Basophil# 0.06 X10^3/uL; Basophil% 0.5 % (0-1); Eosinophil# 0.32 X10^3/uL; Eosinophils% 2.9 % (0-5); Hematocrit 39.5 % (37-47); Hemoglobin 12.4 g/dL (12.0-15.0); Lymphocyte # 1.72 X10^3/ul (0.83-4.51); Lymphocyte % 15.3 % (19-41); Mean Corp Hgb Conc 31.4 g/dL (32-36); Mean Corpuscular Hgb 28.3 pg (27.0-32.0); Mean Corpuscular Volume 90.2 fL (81-99); Mean Platelet Vol. 10.8 fl (6.2-12.0); Monocyte# 0.84 X10^3/uL; Monocyte% 7.5 % (0-10); NRBC Flagged by Analyzer 0 % (0-5); Neutrophil % 73.1 % (47-70); Platelet Count 357 K/mm3 (150-450); RBC Distribution Width CV 14.5 % (11.6-14.6); RBC Distribution Width SD 48.1 fl (35.1-43.9); Red Blood Count 4.38 M/mm3 (4.2-5.4); White Blood Count 11.2 K/mm3 (4.4-11.0)
[2023-12-07 12:03] LABS: Vitamin D,25 Hydroxy 69.4 ng/mL
[2023-12-07 12:19] LABS: ALB/GLOB Ratio 0.9 RATIO (0.9-2.4); AST(SGOT) 13 U/L (15-37); Alanine Aminotransfer ALT/SGPT 21 U/L (13-56); Albumin, Serum 3.3 g/dL (3.2-5.0); Alkaline Phosphatase 71 U/L (45-117); Anion Gap 8 (5-15); BUN 26 mg/dL (7-18); BUN/Creat Ratio 21.5 RATIO (10-20); Calcium,Total 9.3 mg/dL (8.5-10.1); Chloride 107 mmol/L (98-107); Cholesterol 164 mg/dL (200); Creatinine, Serum 1.21 mg/dL (0.55-1.02); EST Glomerular Filtration Rate 46 mL/min (>60); Est Glom Filt Rate - Afr Amer 56 mL/min (>60); Globulin 3.5 g/dL (2.2-4.2); Glucose 99 mg/dL (74-106); High Density Lipoprotein 55 mg/dL; Protein, Total 6.8 g/dL (6.4-8.2); Sodium Level 138 mmol/L (136-145); Thyroid Stim Hormone (TSH) 2.81 uIU/mL (0.358-3.74); Triglycerides 101 mg/dL; Very Low Density Lipoprotein 20 mg/dL (5-40)
== END 2023-12-07 23:59 | disposition home or self-care (01) ==
LOC: LAB.FUTURE 09:58 → LAB 10:59
PROVIDERS: PCP Family Medicine Geriatric Medicine; Referring Provider Family Medicine Geriatric Medicine; Visit Provider Family Medicine Geriatric Medicine
DX: E55.9 Vitamin D deficiency, unspecified (principal); M79.644 Pain in right finger(s); I10 Essential (primary) hypertension; E78.5 Hyperlipidemia, unspecified; E03.9 Hypothyroidism, unspecified
CPT/HCPCS: 36415; 73140; 80053; 80061; 82306; 84443; 85025

== ENCOUNTER → 2023-12-22 | Outpatient (CLI) | payer MEDICARE, SELFPAY ==
--- NOTE | 2023-12-22 12:26 | MRI_ITS ---
STUDY: MRI LUMBAR SPINE WITHOUT CONTRAST REASON FOR EXAM: Female, 78 years old. Radiculopathy/sciatica into left leg x1 year. TECHNIQUE: Standardized fat and water weighted pulse sequences were obtained in the sagittal and axial planes. COMPARISON: Lumbar spine radiographs 01/20/2022. FINDINGS: T9-T10: (Sagittal only). Normal included portion of the posterior T9 inferior endplate. Prominent central Schmorl''s node in the T10 superior endplate causing increased central disc space height. No ventral extradural defect. Normal central canal. Normal partially included right intervertebral neural foramen. The left intervertebral neural foramen is not included. T10-T11: (Sagittal only. Normal endplates. Normal disc height, hydration and morphology. No ventral extradural defect. Normal central canal and bilateral intervertebral neural foramina. T11-T12: Normal endplates. Minimal disc space height narrowing. Mild ventral extradural defect due to tiny posterior bulging annulus. Normal central canal and intervertebral neural foramina. T12-L1: (Sagittal only). Normal endplates. Normal disc height, hydration and morphology. No ventral extradural defect. Normal central canal and bilateral intervertebral neural foramina. Normal lumbar lordosis. There is no substantial scoliosis. Normal conus medullaris that terminates at the T12-L1 disc space level. L1-2: Prominent Schmorl''s node in the posterior L1 inferior endplate. Normal vertebral endplates. Mild disc space height narrowing. Mild ventral extradural defect due to posterior bulging annulus. Normal facet joints. Normal central canal and bilateral lateral recesses. Mild dorsal epidural lipomatosis. Mild stenosis of the left intervertebral neural foramen due to posterior bulging annulus. Normal right intervertebral neural foramen. L2-3: Modic type III degenerative vertebral marrow sclerosis underneath the vertebral endplates correlates with lumbar spine radiographs. Moderately pronounced disc space height narrowing. Mild ventral extradural defect due to posterior bulging annulus and posterior marginal spurs. Mild bilateral degenerative facet arthropathy. Normal central canal and bilateral lateral recesses. Mild stenosis of the bilateral intervertebral neural foramina due to posterior bulging annulus and disc space height narrowing. L3-4: Mild Modic type III degenerative vertebral marrow sclerosis underneath the vertebral endplates correlates with lumbar spine radiographs. Moderately pronounced disc space height narrowing. Moderate bilateral degenerative facet arthropathy. Posterior ligamenta flava hypertrophy. Prominent dorsal epidural lipomatosis. Moderately pronounced central canal stenosis with an AP canal diameter of 6 mm. Normal bilateral lateral recesses. Moderate stenosis of the right intervertebral neural foramen due to disc space height narrowing and posterior marginal spur. Mild stenosis of the left intervertebral neural foramen due to posterior bulging annulus and disc space height narrowing. L4-5: Moderately pronounced Modic type I degenerative vertebral marrow edema involving nearly the entire L4 and L5 vertebral bodies. Mild disc space height narrowing. Mild degenerative anterolisthesis of L4 on L5. Moderately pronounced bilateral degenerative facet arthropathy. Prominent posterior ligamenta flava hypertrophy. Pronounced central canal stenosis with an AP canal diameter ranging from 3 to 4 mm. Minimal dorsal epidural lipomatosis. Normal bilateral lateral recesses. Moderately pronounced stenosis of the bilateral intervertebral neural foramina with impingement of both L4 nerves. L5-S1: Mixed Modic type II and type III. Changes the vertebral marrow underneath the vertebral endplates. Pronounced disc space height narrowing with degenerative vacuum phenomenon. Mild bilateral degenerative facet arthropathy. Normal central canal and bilateral lateral recesses. Moderate stenosis of the bilateral intervertebral neural foramina. Normal visualized sacral ala. Normal visualized paraspinous soft tissue structures. MRI/Spine Lumbar (Routine) IMPRESSION: 1. Low resolution images due to motion. 2. Pronounced central canal stenosis at L4-L5 disc space level with an AP canal diameter ranging from 3 mm to 4 mm secondary to degenerative anterolisthesis of L4 on L5, pronounced disc space height narrowing, developmentally short pedicles and minimal dorsal epidural lipomatosis. Additionally, pronounced L4-L5 intervertebral osteochondritis (Modic type I) and moderately pronounced stenosis of the bilateral intervertebral neural foramina with impingement of both L4 nerves. 3. Moderately pronounced central canal stenosis at L3-L4 disc space level with an AP canal diameter of 6 mm and moderate stenosis of the right intervertebral neural foramen. 4. No MRI evidence of lumbar extruded disc fragment or lumbar disc protrusion. Electronically Signed: Randall Pearce MD at 12:04 EDT ,
== END | disposition home or self-care (01) ==
LOC: MRI 12:20
PROVIDERS: PCP Family Medicine Geriatric Medicine; Referring Provider Anesthesiology Pain Medicine; Visit Provider Anesthesiology Pain Medicine
DX: M54.16 Radiculopathy, lumbar region (principal)
CPT/HCPCS: 72148

== ENCOUNTER 2024-02-14 16:52 | Inpatient (IN) | payer MEDICARE, SELFPAY ==
[2024-02-14] VITALS (11 sets, daily range): BP systolic 136–184; BP diastolic 64–94; PULSE 48–82; RESP 16–28; TEMP 36.1–36.7; O2SAT 87–98; BMI 41.6; BMI 40.3
--- NOTE | 2024-02-14 17:05 | ED.VIS.DYS ---
HPI History of Present Illness Chief Complaint: Shortness of Breath Detail of Chief Complaint: Shortness of breath Informant: patient Narrative Narrative: Patient presents with shortness of breath that started 4 days ago. Complains of exertional dyspnea and having a hard time just walking between apartments at her assisted living facility. She denies any chest pain. Denies recent travel or surgery. She does have remote history of pulmonary emboli about a year ago and was taken off Eliquis after 6 months. No history of CHF or COPD. She denies significant cough or recent illness. Denies orthopnea. Denies leg edema. [facility] Medical History Arthritis Cervical radiculopathy Cervical strain Former smoker Heart disease HTN (hypertension) Migraines Osteoporosis Shoulder pain Strain of right biceps Strain of right shoulder Strain of right trapezius muscle Home Medications ?Medication ?Instructions ?Recorded ?Last Taken ?Type amlodipine 5 mg tablet 5 mg PO DAILY 04/20/21 Unknown History aspirin 81 mg tablet,delayed 81 mg PO DAILY 04/20/21 Unknown History release (Adult Aspirin Regimen) losartan 50 mg tablet 50 mg PO DAILY 04/20/21 Unknown History metoprolol succinate 50 mg 50 mg PO DAILY 04/20/21 Unknown History tablet,extended release 24 hr multivitamin 1 tab PO DAILY 04/20/21 Unknown History pravastatin 40 mg tablet 40 mg PO DAILY 04/20/21 Unknown History ropinirole 1 mg tablet 0.5 mg PO DAILY 04/20/21 Unknown History Allergy/AdvReac Type Severity Reaction Status Date / Time No Known Allergies Allergy Verified 10/25/22 08:57 Surgical History History of cataract surgery History of total bilateral knee replacement Hx of heart artery stent Social History Smoking Status: Former smoker alcohol intake: current alcohol intake frequency: holidays/special occasions only ROS ROS ED Review of Systems ROS Unobtainable: other Constitutional Constitutional ED: Reports lethargy; Denies chills, fever(s), sweats or weight loss Eyes Eyes: Denies blurry vision, change in vision or diplopia ENT ENT ED: Denies rhinorrhea or sore throat Cardiovascular Cardiovascular: Denies chest pain, orthopnea or racing heartbeat Respiratory/Chest Respiratory/Chest: Reports dyspnea and dyspnea on exertion; Denies cough, orthopnea or sputum Gastrointestinal Gastrointestinal: Denies abdominal pain, diarrhea, nausea or vomiting Genitourinary Genitourinary ED: Denies dysuria, hematuria or urinary frequency Musculoskeletal Musculoskeletal: Denies arthralgias, back pain, myalgias or neck pain Integumentary Denies abscess, Abrasions or rash Neurologic Neurologic: Denies headache(s) or weakness Psychiatric Psychiatric: Denies anxiety, depression or suicidal thoughts Endocrine Endocrinology: Denies polydipsia, polyphagia or polyuria Hematologic/Lymphatic Hematologic/Lymphatic: Denies easy bleeding, easy bruising or lymphadenopathy Allergic/Immunologic Allergic/Immunologic ED: Denies mouth swelling, tongue swelling or urticaria EXAM Physical Exam Const Vital Signs: 02/14/24 16:56 02/14/24 16:58 02/14/24 17:09 Temperature 98.1 F Temperature Source Temporal Pulse Rate 59 L Respiratory Rate 19 H Respiratory Effort Short of Breath Blood Pressure 136/74 H Blood Pressure Mean 94 Pulse Ox 93 Oxygen Delivery Method Room Air Room Air Oxygen Flow Rate (L/min) 02/14/24 17:54 02/14/24 17:54 02/14/24 18:00 Temperature Temperature Source Pulse Rate 58 L Respiratory Rate 19 H Respiratory Effort Blood Pressure 165/74 H Blood Pressure Mean 104 Pulse Ox 87 95 94 Oxygen Delivery Method Room Air Nasal Cannula Nasal Cannula Oxygen Flow Rate (L/min) 2 02/14/24 19:00 02/14/24 19:37 Temperature 97 F L Temperature Source Pulse Rate 48 L 63 Respiratory Rate 19 H 19 H Respiratory Effort Blood Pressure 164/85 H 184/94 H Blood Pressure Mean 111 124 Pulse Ox 95 98 Oxygen Delivery Method Nasal Cannula Oxygen Flow Rate (L/min) 2 Positive well nourished and well developed General Appearance ED: well developed and NAD HEENT Reports TM's clear and moist mucous membranes normocephalic and atraumatic; Negative for trauma or tenderness Tympanic Membrane ED: Yes TM's clear Eyes PERRL and EOMs intact bilaterally General Eye ED: Negative for pale conjunctiva or scleral icterus Neck no lymphadenopathy, supple and no JVD General: Negative for tenderness Chest Wall inspection of chest normal and palpation of chest normal Chest: Negative for tenderness Resp normal respiratory effort and clear to auscultation bilaterally Effort and Inspection: Negative for respiratory distress or pain with movement Auscultation: Negative for rhonchi, wheezes or diminished lung sounds Cardio regular rate, regular rhythm, S1 normal heart sound, S2 normal heart sound and no murmurs Peripheral Pulses: pulses 2+ throughout GI normal to inspection, nondistended, normoactive bowel sounds, soft to palpation, non-tender, non-distended and no masses Back/Spine no CVA tenderness and no thoracic nor lumbar tenderness Extremity normal to inspection General Extremety ED: Negative for edema General Extremity: Negative for edema Neuro oriented x3, CN's II-XII intact bilaterally, no sensory deficits noted and gait normal Sensorium / Orientation: awake, alert, oriented to person, oriented to place and oriented to time Motor Exam: strength 5/5 throughout and strength abnormal Psych mental status grossly normal Skin no rashes or lesions noted and no wounds MDM MDM MDM Narrative Medical decision making narrative: Patient presents with exertional dyspnea x 4 days. She has history of coronary artery disease and history of prior PEs. Clinically does not appear to be in failure. There is no significant wheezing on exam. IV line established. Will obtain EKG as well as labs including D-dimer and troponin. Will obtain a chest x-ray. EKG obtained arrival showed a sinus rhythm with rate of 60 bpm with minimal criteria for LVH and old inferior infarct. CBC with differential count of 11.0 with hemoglobin 12.5 and platelet count of 244. Chemistries unremarkable. Troponin was 10. 1 view chest x-ray showed no acute disease process and mitral rotation and radiology in agreement. CT scan of the chest was obtained with IV contrast to rule out PE given elevated D-dimer of 8.33 and this was positive for bilateral PEs. Patient noted to be hypoxic in the room at rest in the upper 80s. She was placed on 2 L nasal cannula O2. She was started on Lovenox subcu 1 mg/kg. Case discussed with hospitalist will evaluate patient for admission. Lab Data Attestation: I reviewed the patient's lab results. Labs: Laboratory Results - last 24 hr 02/14/24 16:58 WBC 11.0 RBC 4.36 Hgb 12.5 Hct 38.9 MCV 89.2 MCH 28.7 MCHC 32.1 RDW Std Deviation 44.7 H RDW Coeff of Jensen 13.8 Plt Count 244 MPV 10.6 Immature Gran % (Auto) 0.500 Neut % (Auto) 75.8 H Lymph % (Auto) 13.5 L [place] % (Auto) 6.0 Eos % (Auto) 3.8 Baso % (Auto) 0.4 Absolute Neuts (auto) 8.3 H Absolute Lymphs (auto) 1.48 Nucleated RBC % 0 D-Dimer Quant (PE/DVT) 8.33 H* Sodium 142 Potassium 3.7 Chloride 109 H Carbon Dioxide 27.0 Anion Gap 6 BUN 27 H Creatinine 1.29 H Estim Creat Clear Calc 43.41 Est GFR (MDRD) Af Amer 52 L Est GFR (MDRD) Non-Af 43 L BUN/Creatinine Ratio 20.9 H Glucose 151 H Calcium 9.2 Troponin I High Sens 10 Radiography Diagnostic Testing: Clinical Impression(s) from Imaging Studies Chest X-Ray 02/14/24 17:15 IMPRESSION: No acute cardiopulmonary pathology Electronically Signed: Jean Rouse MD at 17:43 EDT Reading Location ID and State: [facility] / [place] Tel [phone], Service support , Chest CTA 02/14/24 17:48 IMPRESSION: Multiple pulmonary emboli most severe in the lower lobes with findings suggestive of right ventricular strain however echocardiogram would be useful for more definitive evaluation. Minor atelectasis within the dependent portion of the lower lobes Electronically Signed: Jean Rouse MD at 18:52 EDT , ADDENDUM: 02/14/24 1906 IMPRESSION: Multiple pulmonary emboli most severe in the lower lobes with findings suggestive of right ventricular strain however echocardiogram would be useful for more definitive evaluation. Minor atelectasis within the dependent portion of the lower lobes N.B. : The above Results were Read Back by Jean Rouse MD to Doreen Cohen DO, and understanding confirmed on 02/14/2024 18:59:33 (ET). Electronically Signed: Jean Rouse MD at 18:52 EDT , EKG Initial EKG: Attestation: I personally reviewed and interpreted this EKG as follows: Comments: Sinus rhythm with rate of 60 bpm with old inferior infarct Discharge Plan Triage Chief Complaint: Shortness of Breath ED Provider: Doreen Cohen Dx/Rx/DC Orders Clinical Impression: Pulmonary emboli, Exertional dyspnea, Hypoxemia Prescriptions: No Action ropinirole 1 mg tablet 0.5 mg PO DAILY pravastatin 40 mg tablet 40 mg PO DAILY amlodipine 5 mg tablet 5 mg PO DAILY losartan 50 mg tablet 50 mg PO DAILY metoprolol succinate 50 mg tablet extended release 24 hr 50 mg PO DAILY aspirin [Adult Aspirin Regimen] 81 mg tablet,delayed release (DR/EC) 81 mg PO DAILY multivitamin Tablet 1 tab PO DAILY Primary Care Provider: Diogenes Prather Chi Referrals: Diogenes Prather Chi, MD [Primary Care Provider] - Print Language: Swedish Disposition Disposition: Acute Care Hospital [facility]
--- NOTE | 2024-02-14 17:15 | RAD_ITS ---
STUDY: X-RAY CHEST REASON FOR EXAM: Female, 78 years old. dyspnea TECHNIQUE: AP portable COMPARISON: None. FINDINGS: The lungs are clear and expanded. There is no demonstrated pleural abnormality. Normal size heart. Normal mediastinum and marimar. Normal visualized pulmonary arteries. Mildly calcified aortic arch and descending thoracic aorta. Dorsal spine and shoulders demonstrate degenerative changes. Normal visualized ribs, and clavicles There is no demonstrated abnormality of the visualized soft tissue structures of the upper abdomen. RAD/Chest 1 View (Portable) IMPRESSION: No acute cardiopulmonary pathology Electronically Signed: Jean Rouse MD at 17:43 EDT ,
[2024-02-14 17:44] LABS: Anion Gap 6 (5-15); BUN 27 mg/dL (7-18); BUN/Creat Ratio 20.9 RATIO (10-20); Calcium,Total 9.2 mg/dL (8.5-10.1); Chloride 109 mmol/L (98-107); Creatinine, Serum 1.29 mg/dL (0.55-1.02); EST Glomerular Filtration Rate 43 mL/min (>60); Est Glom Filt Rate - Afr Amer 52 mL/min (>60); Estimated Creatinine Clearance 43.41 ml/min; Glucose 151 mg/dL (74-106); Potassium 3.7 mmol/L (3.5-5.1); Sodium Level 142 mmol/L (136-145); Troponin-I HS 10 pg/mL (3.0-54.0)
[2024-02-14 17:47] LABS: D-Dimer Quantitative (DVT/PE) 8.33 FEU/ug/m (0.27-0.49)
--- NOTE | 2024-02-14 17:48 | CT_ITS ---
We are attempting to reach an attending provider to discuss findings. An addendum with communication details will be sent when the communication is complete. STUDY: CTA CHEST REASON FOR EXAM: Female, 78 years old. dyspnea, elevated d-dimer RADIATION DOSAGE (If Supplied By Facility): CTDIvol = ( 26.81 ) mGy, DLP = ( 458.82 ) mGycm TECHNIQUE: The examination was performed with the intravenous administration of IV 100mL Isovue-370. Post-processing of the angiographic images was performed, with multiplanar reformation and 3D reconstruction. Individualized dose optimization techniques were used for this CT. COMPARISON: None. FINDINGS: Normal enhancement of the main pulmonary artery and right and left pulmonary arteries. There is intraluminal thrombus seen within the distal main pulmonary arteries bilaterally extending into the proximal upper lobe branches as well as the descending interlobar branches bilaterally. There is also thrombus noted within the segmental and subsegmental branches of both lower lobes. . Mild atherosclerotic change of the aorta without evidence for aneurysm.. There is no demonstrated aortic dissection. Normal heart and pericardium. There is multifocal coronary artery calcification There is mild flattening of the ventricular septum possibly due to right ventricular strain. Normal mediastinum. Normal hilar regions. Normal visualized trachea and bronchi. Minor atelectasis within the dependent portion of the lower lobes. Calcified granuloma in the right upper lobe . Normal pleura. Normal chest wall structures. Dorsal spine demonstrates degenerative changes. Small hiatal hernia noted There is a cyst noted within the left lobe of the liver. CT/CTA Chest W/WO Contrast IMPRESSION: Multiple pulmonary emboli most severe in the lower lobes with findings suggestive of right ventricular strain however echocardiogram would be useful for more definitive evaluation. Minor atelectasis within the dependent portion of the lower lobes Electronically Signed: Jean Rouse MD at 18:52 EDT ,
[2024-02-14 17:51] LABS: Absolute Lymphocyte Count 1.48 X10^3/uL (0.83-4.51); Absolute Neutrophil Count 8.3 X10^3/uL (2.0-7.7); Basophil# 0.04 X10^3/uL; Basophil% 0.4 % (0-1); Eosinophil# 0.42 X10^3/uL; Eosinophils% 3.8 % (0-5); Hematocrit 38.9 % (37-47); Hemoglobin 12.5 g/dL (12.0-15.0); Lymphocyte # 1.48 X10^3/ul (0.83-4.51); Lymphocyte % 13.5 % (19-41); Mean Corp Hgb Conc 32.1 g/dL (32-36); Mean Corpuscular Hgb 28.7 pg (27.0-32.0); Mean Corpuscular Volume 89.2 fL (81-99); Mean Platelet Vol. 10.6 fl (6.2-12.0); Monocyte# 0.66 X10^3/uL; NRBC Flagged by Analyzer 0 % (0-5); Neutrophil # 8.34 X10^3/uL (2.7-7.7); Neutrophil % 75.8 % (47-70); Platelet Count 244 K/mm3 (150-450); RBC Distribution Width CV 13.8 % (11.6-14.6); RBC Distribution Width SD 44.7 fl (35.1-43.9); Red Blood Count 4.36 M/mm3 (4.2-5.4)
[2024-02-14] MEDS: 0.9% Normal Saline (1000mL) 1,000 ML 150 ML IV (18:12)
[2024-02-14] MEDS: Enoxaparin 120 MG/0.8 ML Syringe 110 MG SC (19:30)
--- NOTE | 2024-02-14 19:44 | HP.PCM.HOS_ITS ---
[facility] - General General Date of Service: 02/14/24 Chief Complaint: shortness of breath. 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 Over the past 2 days, patient had an acute onset exertional dyspnea. Has not been able to sleep in the midst of all this so sought attention in the emergency room today. Had an elevated D-dimer of 8.33. CT of the chest showed multiple pulmonary emboli most severe in the lower lobe with findings suggestive of right ventricular strain. Patient did receive a therapeutic dose of enoxaparin. In April 2023, patient was diagnosed with pulmonary embolism. She received 6 months of apixaban and then that was discontinued in October after 6 months. Patient denies any recent injury with this or that episode. [facility] Medical History Osteoporosis Former smoker Migraines Strain of right biceps Strain of right shoulder Cervical radiculopathy Strain of right trapezius muscle Cervical strain Heart disease Shoulder pain Arthritis HTN (hypertension) Home Medications ?Medication ?Instructions ?Recorded ?Last Taken ?Type amlodipine 5 mg tablet 5 mg PO DAILY 04/20/21 Unknown History aspirin 81 mg tablet,delayed 81 mg PO DAILY 04/20/21 Unknown History release (Adult Aspirin Regimen) losartan 50 mg tablet 50 mg PO DAILY 04/20/21 Unknown History metoprolol succinate 50 mg 50 mg PO DAILY 04/20/21 Unknown History tablet,extended release 24 hr multivitamin 1 tab PO DAILY 04/20/21 Unknown History pravastatin 40 mg tablet 40 mg PO DAILY 04/20/21 Unknown History ropinirole 1 mg tablet 0.5 mg PO DAILY 04/20/21 Unknown History Allergy/AdvReac Type Severity Reaction Status Date / Time No Known Allergies Allergy Verified 10/25/22 08:57 Surgical History Hx of heart artery stent History of total bilateral knee replacement History of cataract surgery Social History Smoking Status: Former smoker alcohol intake: current alcohol intake frequency: holidays/special occasions only ROS ROS Narrative All review of systems were negative except as mentioned above in the history of present illness and the other review of systems. Vital Signs Vital Signs Vital Signs: 02/14/24 16:56 02/14/24 16:58 02/14/24 17:09 Temperature 36.7 C Temperature Source Temporal Pulse Rate 59 L Respiratory Rate 19 H Respiratory Effort Short of Breath Blood Pressure 136/74 H Blood Pressure Mean 94 Pulse Ox 93 Oxygen Delivery Method Room Air Room Air Oxygen Flow Rate (L/min) 02/14/24 17:54 02/14/24 17:54 02/14/24 18:00 Temperature Temperature Source Pulse Rate 58 L Respiratory Rate 19 H Respiratory Effort Blood Pressure 165/74 H Blood Pressure Mean 104 Pulse Ox 87 95 94 Oxygen Delivery Method Room Air Nasal Cannula Nasal Cannula Oxygen Flow Rate (L/min) 2 02/14/24 19:00 02/14/24 19:37 Temperature 36.1 C L Temperature Source Pulse Rate 48 L 63 Respiratory Rate 19 H 19 H Respiratory Effort Blood Pressure 164/85 H 184/94 H Blood Pressure Mean 111 124 Pulse Ox 95 98 Oxygen Delivery Method Nasal Cannula Oxygen Flow Rate (L/min) 2 Weight Weight: 106.7 kg Body Mass Index (BMI) 41.6 Physical Exam Narrative - Physical Exam General: Alert, Oriented x3, Cooperative. Did become tearful when asking about her CODE STATUS. HEENT: Atraumatic, PERRLA, EOMI, Normocephalic Oral: Moist Mucosa, No Gingival or Mucosal Lesions/ Ulcerations Neck: Supple, No JVD, Negative Carotid Bruits Lungs: Clear to auscultation, Normal air movement Cardiovascular: Regular rate, Normal S1, Normal S2, No murmurs Abdomen: Bowel Sounds Present, Soft, Non Tender, Non-Distended, No Hepato- splenomegaly Extremities: No clubbing, No cyanosis, No edema, Capillary Refill Less than 3 Seconds. No calf tenderness. No palpable cords. Skin: No rashes, No breakdown Musculoskeletal: No Tenderness to Palpation of Joints or Extremities Neurological: Neuro grossly intact Psych/Mental Status: Normal Affect, Appropriate Results Lab / Micro Data Attestation: I reviewed the patient's lab results. 02/14/24 16:58 02/14/24 16:58 Labs: Laboratory Results - last 24 hr 02/14/24 16:58: WBC 11.0, RBC 4.36, Hgb 12.5, Hct 38.9, MCV 89.2, MCH 28.7, MCHC 32.1, RDW Std Deviation 44.7 H, RDW Coeff of Jensen 13.8, Plt Count 244, MPV 10.6, Immature Gran % (Auto) 0.500, Neut % (Auto) 75.8 H, Lymph % (Auto) 13.5 L, [place] % (Auto) 6.0, Eos % (Auto) 3.8, Baso % (Auto) 0.4, Absolute Neuts (auto) 8.3 H, Absolute Lymphs (auto) 1.48, Nucleated RBC % 0, D-Dimer Quant (PE/DVT) 8.33 H*, Sodium 142, Potassium 3.7, Chloride 109 H, Carbon Dioxide 27.0, Anion Gap 6, BUN 27 H, Creatinine 1.29 H, Estim Creat Clear Calc 43.41, Est GFR (MDRD) Af Amer 52 L, Est GFR (MDRD) Non-Af 43 L, BUN/Creatinine Ratio 20.9 H, Glucose 151 H, Calcium 9.2, Troponin I High Sens 10 EKG Initial EKG: Attestation: I personally reviewed and interpreted this EKG as follows: Prior EKG tracings: available for review EKG Rhythm Intrepretation: Sinus Rhythm (Q waves in lead III.) Imaging Radiology Impression Chest X-Ray 02/14/24 17:15 IMPRESSION: No acute cardiopulmonary pathology Electronically Signed: Jean Rouse MD at 17:43 EDT , Chest CTA 02/14/24 17:48 IMPRESSION: Multiple pulmonary emboli most severe in the lower lobes with findings suggestive of right ventricular strain however echocardiogram would be useful for more definitive evaluation. Minor atelectasis within the dependent portion of the lower lobes Electronically Signed: Jean Rouse MD at 18:52 EDT , ADDENDUM: 02/14/24 1906 IMPRESSION: Multiple pulmonary emboli most severe in the lower lobes with findings suggestive of right ventricular strain however echocardiogram would be useful for more definitive evaluation. Minor atelectasis within the dependent portion of the lower lobes N.B. : The above Results were Read Back by Jean Rouse MD to Doreen Cohen DO, and understanding confirmed on 02/14/2024 18:59:33 (ET). Electronically Signed: Jean Rouse MD at 18:52 EDT Reading Location ID and State: [facility] / [place] Tel , Service support , Assessment & Plan Assessment/Plan (1) Pulmonary emboli: PLAN: Plan Acute pulmonary emboli * Appears unprovoked. It sounds like the previous episode in April of last year was also unprovoked. * Patient received therapeutic enoxaparin in the emergency room. Will continue for now. Anticipate the patient will be on apixaban upon discharge. Did discuss with the patient that this is an unprovoked PE and would likely require lifelong anticoagulation. Though I did recommend that she follow-up with hematology in the next several months to see if possibly she could come off of anticoagulation. Of note, last time patient had pulmonary emboli, she did not see hematology but completed a 6-month course of apixaban. * Noted right heart strain on CT. Given that this is multiple, she is not a candidate for extraction at this time. Cycle troponins. Check 2D echocardiogram. Patient has no or lower extremity edema. Though this does not rule out DVT, duplex of lower extremities if positive would not change her management at this time. Hypoxia * Secondary to PE * Wean oxygen as tolerated Chronic conditions: * Hypertension: Continue with metoprolol succinate and losartan amlodipine * Hyperlipidemia: Continue with pravastatin * Restless leg syndrome: Continue with ropinirole. VTE prophylaxis: Not indicated as patient is already anticoagulated. CODE STATUS: Addressed with patient. Patient was upset when being asked this though I did preface it being stand questioning for people being admitted, she did become tearful. She said that she did not want a DNR. She agreed to CODE STATUS. Disposition: To be determined. Anticipate patient requiring approximately 2 days in the hospital. Patient has concerns for right heart strain on her to echocardiogram and requires inpatient monitoring for now on telemetry as she carries high risk of complications of going home too early. Charges/Coding Visit Charges Inpatient E&M: 79530 Init Hosp L3
--- NOTE | 2024-02-14 22:44 | ECHOD_ITS ---
Reason For Study: PE Procedure This was a 2D Doppler, Color Flow transthoracic echocardiogram. The study was technically limited. Exam performed portable in patient room. Left Ventricle Normal LV size. Left ventricular systolic function is normal. The estimated ejection fraction is 60 %. Diastolic function is indeterminate. Right Ventricle Normal RV size. Normal systolic function. The RV free wall longitudinal strain was -21 % . Atria The left and right atria are normal. Mitral Valve Mild mitral annular calcification. Mild diffuse mitral valve thickening. There is no mitral valve stenosis. Trivial mitral valve insufficiency. Tricuspid Valve Normal tricuspid valve. Mild to moderate (1-2+) tricuspid valve insufficiency. Pulmonary artery systolic pressure is 55 mmHg. Moderate pulmonary hypertension. Aortic Valve Trisinus/trileaflet aortic valve. Mild diffuse aortic valve thickening. Aortic sclerosis, no stenosis. Trivial aortic valve insufficiency. Pulmonic Valve Normal pulmonic valve. Mild (1+) pulmonic valve insufficiency. Great Vessels Normal aortic root. Pericardium/Pleural No pericardial effusion. MMode/2D Measurements & Calculations LVIDd: 4.7 cm IVSd: 1.0 cm Ao root diam: 3.0 cm LVIDs: 3.3 cm LVPWd: 0.76 cm RVDd: 2.6 cm FS: 30.9 % LAV(MOD-bp): 47.2 ml LVAd ap4: 28.2 cm2 LVAd ap2: 23.7 cm2 LAV(MOD-bp) Indexed: 23.1 ml/m2 LVLd ap4: 7.6 cm LVLd ap2: 7.0 cm LAV(MOD-sp2): 52.0 ml EDV(MOD-sp4): 85.3 ml EDV(MOD-sp2): 66.1 ml LAV(MOD-sp4): 41.2 ml EDV(sp4-el): 89.0 ml EDV(sp2-el): 68.0 ml LVAs ap4: 14.1 cm2 LVAs ap2: 13.0 cm2 LVLs ap4: 5.9 cm LVLs ap2: 6.1 cm ESV(MOD-sp4): 28.4 ml ESV(MOD-sp2): 23.6 ml ESV(sp4-el): 28.6 ml ESV(sp2-el): 23.2 ml EF(MOD-sp4): 66.7 % EF(MOD-sp2): 64.3 % EF(sp4-el): 67.9 % SV(MOD-sp4): 56.9 ml SV(MOD-sp2): 42.5 ml SV(sp4-el): 60.5 ml LA dimension(2D): 3.3 cm LA A4 area: 17.6 cm2 RA A4 area: 12.7 cm2 TAPSE: 2.0 cm Time Measurements MV dec time: 0.15 sec Doppler Measurements & Calculations MV E max lavell: 89.3 cm/sec Lat Peak E' Lavell: 8.0 cm/sec Med Peak E' Lavell: 11.0 cm/sec MV A max lavell: 71.4 cm/sec E/E' lat: 11.1 E/E' med: 8.1 MV E/A: 1.3 MV V2 max: 98.2 cm/sec MV P1/2t max lavell: 96.4 cm/sec Ao V2 max: 178.0 cm/sec MV max P.9 mmHg MV P1/2t: 54.0 msec Ao max P.7 mmHg MV V2 mean: 42.0 cm/sec MV dec slope: 523.0 cm/sec2 Ao V2 mean: 126.2 cm/sec MV mean P.95 mmHg Ao mean P.0 mmHg MV V2 VTI: 29.2 cm MVA(P1/2t): 4.1 cm2 Ao V2 VTI: 45.4 cm AV (velocity ratio): 0.68 LV V1 max: 118.7 cm/sec PA V2 max: 71.2 cm/sec PI dec slope: 176.9 cm/sec2 LV V1 max P.6 mmHg PA V2 mean: 48.7 cm/sec LV V1 mean P.5 mmHg PA V2 VTI: 12.2 cm LV V1 mean: 90.3 cm/sec LV V1 VTI: 31.0 cm TR max lavell: 359.2 cm/sec TR max P.6 mmHg ECHO/Echo Complete Interpretation Summary The estimated ejection fraction is 60 %. Diastolic function is indeterminate. Mild diffuse mitral valve thickening. Mild mitral annular calcification. Mild to moderate (1-2+) tricuspid valve insufficiency. Moderate pulmonary hypertension. Aortic sclerosis, no stenosis. Ordering Physician: Gennaro Pa Referring Physician: Diogenes Prather Chi Performed By: Sandra Garcia, SANDRA, RVT
[2024-02-14] MEDS: Acetaminophen 325 MG Tablet 650 MG PO (23:35)
[2024-02-15 00:39] LABS: Troponin-I HS 16 pg/mL (3.0-54.0)
[2024-02-15 02:22] LABS: Troponin-I HS 16 pg/mL (3.0-54.0)
[2024-02-15 04:03] VITALS: PULSE 50
[2024-02-15 06:17] VITALS: BP 149/72; PULSE 65; RESP 16; TEMP 36.7; O2SAT 98
[2024-02-15 06:48] LABS: Absolute Lymphocyte Count 1.63 X10^3/uL (0.83-4.51); Absolute Neutrophil Count 6.3 X10^3/uL (2.0-7.7); Basophil# 0.05 X10^3/uL; Basophil% 0.5 % (0-1); Eosinophils% 4.4 % (0-5); Hematocrit 36.5 % (37-47); Hemoglobin 11.6 g/dL (12.0-15.0); Lymphocyte # 1.63 X10^3/ul (0.83-4.51); Lymphocyte % 17.9 % (19-41); Mean Corp Hgb Conc 31.8 g/dL (32-36); Mean Corpuscular Hgb 28.6 pg (27.0-32.0); Mean Corpuscular Volume 89.9 fL (81-99); Mean Platelet Vol. 10.6 fl (6.2-12.0); Monocyte# 0.68 X10^3/uL; Monocyte% 7.5 % (0-10); NRBC Flagged by Analyzer 0 % (0-5); Neutrophil # 6.29 X10^3/uL (2.7-7.7); Neutrophil % 69.2 % (47-70); Platelet Count 215 K/mm3 (150-450); RBC Distribution Width CV 13.7 % (11.6-14.6); Red Blood Count 4.06 M/mm3 (4.2-5.4); White Blood Count 9.1 K/mm3 (4.4-11.0)
[2024-02-15 07:33] LABS: Anion Gap 5 (5-15); BUN 21 mg/dL (7-18); Calcium,Total 8.9 mg/dL (8.5-10.1); Chloride 108 mmol/L (98-107); EST Glomerular Filtration Rate 57 mL/min (>60); Est Glom Filt Rate - Afr Amer 69 mL/min (>60); Estimated Creatinine Clearance 54.94 ml/min; Glucose 107 mg/dL (74-106); Potassium 3.5 mmol/L (3.5-5.1); Sodium Level 139 mmol/L (136-145); Troponin-I HS 12 pg/mL (3.0-54.0)
[2024-02-15 08:06] VITALS: O2SAT 97
[2024-02-15 10:08] VITALS: BP 154/65; PULSE 56; RESP 18; TEMP 36.6; O2SAT 94
[2024-02-15] MEDS: Enoxaparin 100 MG/ML Syringe SC (10:10)
[2024-02-15] MEDS: Aspirin E.C. 81 MG Tablet PO (10:11)
[2024-02-15] MEDS: Multivitamins,Therapeutic Tablet 1 TABLET PO (10:11)
[2024-02-15] MEDS: amLODIPine 5 MG Tablet PO (10:11)
[2024-02-15] MEDS: Losartan Potassium 50 MG Tablet PO (10:11)
--- NOTE | 2024-02-15 11:05 | CASEMGMT ---
RN CM Face to Face with patient for initial transition planning/care coordination assessment. RN CM introduced self and role at [facility]. Patient lying in bed, alert and oriented. Patient willing to participate in assessment and is able to answer all questions appropriately. Care providers, pharmacy, and demographics verified. PCP: Crescencio Specialists: Kelli pain Preferred Pharmacy:[facility] Insurance: [employer] [facility] Prescription Benefit: yes Living Will/HPOA: none LNOK: , daughter Living Arrangements: Patient lives with in a 4th floor apartment with elevator. Patient is independent at home Transportation: self, daughter DME/HHC: Patient has shower chair, raised toilet, cane, walker at home. No previous HHC or SNF Patient wishes to discharge home, denies need for home health at this time. Patient states he has no further needs or concerns at this time. CM to follow for discharge planning needs that may arise. Disposition Plan: Patient to discharge home with family support and follow-up plans in place. Gabby CHAMBERS, RN, CM
[2024-02-15 11:37] VITALS: O2SAT 89; O2SAT 94
--- NOTE | 2024-02-15 12:18 | DCINST_ITS ---
Discharge Instructions Diet Discharge Diet: No restrictions Activity Discharge Activity: Return to Normal Activity Weight Bearing Status: Full weight bearing Follow Up Care Test Results: Test results from this visit will be discussed in further detail at your follow- up appointment, if applicable. Discharge Plan Admission Admit Date/Time: 02/14/24 19:28 Primary Reason for Your Visit: pulmonary embolism Attending Provider: Juan Marie Primary Care Provider: Diogenes Prather Chi Consulting Providers: Gennaro Pa Instructions Additional Instructions / Restrictions: Do not take any ibuprofen or Aleve while you are taking Eliquis Report any abnormal bleeding to your primary care physician Discharge Orders/Prescriptions Prescriptions: New Eliquis 5 mg tablet 10 mg PO BID Qty: 1 0RF Rx Instructions: Take 2 tabs twice a day for a total of 14 doses starting tonight, then reduce the medication to 1 tablet twice a day thereafter Continued ropinirole 1 mg tablet 0.5 mg PO DAILY pravastatin 40 mg tablet 40 mg PO DAILY amlodipine 5 mg tablet 5 mg PO DAILY losartan 50 mg tablet 50 mg PO DAILY metoprolol succinate 50 mg tablet extended release 24 hr 50 mg PO DAILY aspirin [Adult Aspirin Regimen] 81 mg tablet,delayed release (DR/EC) 81 mg PO DAILY multivitamin Tablet 1 tab PO DAILY pramipexole 0.5 mg tablet 0.5 mg PO QHS Referrals / Follow Up: Diogenes Prather Chi, MD [Primary Care Provider] - Within 2 Weeks Disposition Disposition (needs filled in before D/C Order can be placed): Home, Self Care
--- NOTE | 2024-02-15 14:34 | CASEMGMT ---
Patient has order for discharge. Patient is discharging on Eliquis. SHALOM CM provided Eliquis PE information with savings card. Patient denied further needs or help at discharge. Patient aware to follow up with PCP. Patient had no further questions or concerns.
--- NOTE | 2024-02-15 14:50 | PHA.DC.MC.R ---
Pharmacy [facility] has performed discharge medication reconciliation and counseling for this patient. 1. APIXABAN 10MG PO BID X 7 DAYS, THEN 5MG PO BID The patient's discharge medication list was reviewed for discrepancies and discrepancies were resolved. The patient was counseled on the following discharge medications and changes in medications for homegoing were reviewed. The Reason for Use, instructions for use, and potential side effects were reviewed for all new medications. The patient's questions regarding all of their medications were answered. The patient was able to verbally demonstrate an understanding of their discharge medications. Medications at Discharge Home Medications amlodipine 5 mg tablet 5 mg PO DAILY blood pressure 04/20/21 aspirin 81 mg tablet,delayed release (Adult Aspirin Regimen) 81 mg PO DAILY heart health 04/20/21 losartan 50 mg tablet 50 mg PO DAILY blood pressure 04/20/21 metoprolol succinate 50 mg tablet,extended release 24 hr 50 mg PO DAILY blood pressure 04/20/21 multivitamin 1 tab PO DAILY vitamin 04/20/21 pravastatin 40 mg tablet 40 mg PO DAILY cholesterol 04/20/21 ropinirole 1 mg tablet 0.5 mg PO DAILY restless legs 04/20/21 pramipexole 0.5 mg tablet 0.5 mg PO QHS restless legs 02/14/24 apixaban 5 mg tablet (Eliquis) 10 mg (2 x 5 mg) PO BID #1 TAB 02/15/24
[2024-02-15 14:58] VITALS: BP 134/65; PULSE 67; RESP 17; TEMP 36.6; O2SAT 94
--- NOTE | 2024-02-15 16:02 | CHAPLAIN ---
Type of Pastoral Visit _x__ Initial Visit ___ Follow-up Visit ___ On-call Visit ___ General Patient Visit ___ Spiritual Assessment ___ Family Conference ___ Bereavement ___ Rapid Response ___ Code Blue ___ Other (describe below) Pastoral Care Referral From _x__ Patient ___ Family ___ Nurse ___ Physician ___ Centerless Grinding Machine Adjuster ___ General Ledger Accountant ___ Other (describe below) Sacrament/Intervention _x__ Active listening ___ Anointing ___ Religion ___ Bereavement ___ Communion ___ Vannessa exploration ___ ___ Life review _x__ Prayer ___ Reconciliation ___ Sacrament of Sick ___ Supportive presence ___ Wedding ___ Other (describe below) Pastoral Comments patient expects to be discharged soon as daughter comes to get her; pt reports feeling better; pt concern is for her spouse who is declining in health; prayer given for both
== END 2024-02-15 16:01 | disposition home or self-care (01) | DRG 176 ==
LOC: ED 19:42 → PCU 21:24
PROVIDERS: Emergency Provider Emergency Medicine; PCP Family Medicine Geriatric Medicine; Visit Provider Internal Medicine
DX: I26.99 Other pulmonary embolism without acute cor pulmonale (principal); G25.81 Restless legs syndrome; I10 Essential (primary) hypertension; I25.10 Atherosclerotic heart disease of native coronary artery without angina pectoris; Z79.899 Other long term (current) drug therapy; Z86.711 Personal history of pulmonary embolism; Z87.891 Personal history of nicotine dependence
CPT/HCPCS: 36415; 71045; 71275; 80048; 84484; 85025; 85379; 93005; 93306; 99284; Q9967

== ENCOUNTER → 2024-03-01 | Outpatient (CLI) | payer MEDICARE, SELFPAY ==
[2024-03-01 12:05] LABS: Absolute Lymphocyte Count 1.69 X10^3/uL (0.83-4.51); Absolute Neutrophil Count 6.9 X10^3/uL (2.0-7.7); Basophil# 0.05 X10^3/uL; Basophil% 0.5 % (0-1); Eosinophil# 0.48 X10^3/uL; Eosinophils% 4.9 % (0-5); Hematocrit 38.4 % (37-47); Lymphocyte # 1.69 X10^3/ul (0.83-4.51); Lymphocyte % 17.2 % (19-41); Mean Corp Hgb Conc 31.3 g/dL (32-36); Mean Corpuscular Hgb 28.8 pg (27.0-32.0); Mean Corpuscular Volume 92.1 fL (81-99); Mean Platelet Vol. 10.5 fl (6.2-12.0); Monocyte# 0.66 X10^3/uL; Monocyte% 6.7 % (0-10); NRBC Flagged by Analyzer 0 % (0-5); Neutrophil % 70.1 % (47-70); Platelet Count 345 K/mm3 (150-450); Red Blood Count 4.17 M/mm3 (4.2-5.4); White Blood Count 9.8 K/mm3 (4.4-11.0)
[2024-03-01 12:49] LABS: ALB/GLOB Ratio 0.9 RATIO (0.9-2.4); AST(SGOT) 16 U/L (15-37); Alanine Aminotransfer ALT/SGPT 20 U/L (13-56); Albumin, Serum 3.1 g/dL (3.2-5.0); Alkaline Phosphatase 72 U/L (45-117); Anion Gap 5 (5-15); BUN 24 mg/dL (7-18); BUN/Creat Ratio 19.2 RATIO (10-20); Calcium,Total 9.1 mg/dL (8.5-10.1); Chloride 106 mmol/L (98-107); Cholesterol 159 mg/dL (200); Creatinine, Serum 1.25 mg/dL (0.55-1.02); EST Glomerular Filtration Rate 44 mL/min (>60); Est Glom Filt Rate - Afr Amer 54 mL/min (>60); Globulin 3.4 g/dL (2.2-4.2); Glucose 141 mg/dL (74-106); High Density Lipoprotein 44 mg/dL; Potassium 4.4 mmol/L (3.5-5.1); Protein, Total 6.5 g/dL (6.4-8.2); Sodium Level 138 mmol/L (136-145); Triglycerides 152 mg/dL; Very Low Density Lipoprotein 30 mg/dL (5-40)
== END | disposition home or self-care (01) ==
LOC: LAB 10:34
PROVIDERS: PCP Family Medicine Geriatric Medicine; Referring Provider Family Medicine Geriatric Medicine; Visit Provider Family Medicine Geriatric Medicine
DX: I10 Essential (primary) hypertension (principal); E55.9 Vitamin D deficiency, unspecified; E78.5 Hyperlipidemia, unspecified
CPT/HCPCS: 36415; 80053; 80061; 82306; 84443; 85025

== ENCOUNTER 2024-03-04 09:42 | Emergency (ER) | payer MEDICARE, SELFPAY ==
[2024-03-04 09:42] VITALS: BP 135/111; PULSE 73; RESP 18; TEMP 36.2; O2SAT 95; BMI 41.3
--- NOTE | 2024-03-04 10:04 | RAD_ITS ---
INDICATION: Fall. Pain EXAMINATION/TECHNIQUE: X-RAY - RIGHT XR Elbow Min 3 Views COMPARISON: No relevant prior comparison study available FINDINGS: SOFT TISSUES: No soft tissue swelling or gas. No radiopaque foreign body. BONES/JOINTS: There is no displacement of the anterior or posterior fat pads. No acute fracture or subluxation. Normal alignment. There are mild degenerative changes. There are enthesophytes arising from the olecranon. No sclerotic or destructive changes observed. RAD/Elbow min 3 Views IMPRESSION: No acute osseous injury. Mild degenerative changes. Electronically Signed: Allie Sanchez MD at 10:28 EDT ,
--- NOTE | 2024-03-04 10:04 | RAD_ITS ---
INDICATION: fall pain EXAMINATION/TECHNIQUE: X-RAY - LEFT HAND XR Fingers Min 2 Views 3 VIEWS COMPARISON: Right finger December 07, 2023 FINDINGS: SOFT TISSUES: There is diffuse soft tissue swelling. No radiopaque foreign body. BONES/JOINTS: No acute fracture or subluxation.. Normal alignment. There are degenerative changes of the proximal and distal interphalangeal joints, most pronounced within the DIP. No sclerotic or destructive changes observed. RAD/Finger(s) Min 2 Views IMPRESSION: No acute fracture. Degenerative changes of the fifth interphalangeal joints. Diffuse soft tissue swelling. Electronically Signed: Allie Sanchez MD at 10:33 EDT ,
--- NOTE | 2024-03-04 11:26 | ED.VIS.FALL ---
HPI HPI - Fall History of Present Illness Chief Complaint: Fall Narrative Narrative: 78-year-old female presents with injury to her left fifth digit, and her right elbow that she sustained yesterday. She states that she was coming down off the elevator, using her cane, and may be tripped over a rug. She fell forward. She did need assistance getting up. She is right-hand dominant, she complains of pain in the DIP joint of her left finger, fifth, and in her right elbow. She denies hitting her head or loss of consciousness. After she had fallen, she got up and went about her day. PFSH [facility] Medical History Osteoporosis Former smoker Migraines Strain of right biceps Strain of right shoulder Cervical radiculopathy Strain of right trapezius muscle Cervical strain Heart disease Shoulder pain Arthritis HTN (hypertension) Home Medications ?Medication ?Instructions ?Recorded ?Last Taken ?Type amlodipine 5 mg tablet 5 mg PO DAILY blood pressure 04/20/21 Unknown History aspirin 81 mg tablet,delayed 81 mg PO DAILY heart health 04/20/21 Unknown History release (Adult Aspirin Regimen) losartan 50 mg tablet 50 mg PO DAILY blood pressure 04/20/21 Unknown History metoprolol succinate 50 mg 50 mg PO DAILY blood pressure 04/20/21 Unknown History tablet,extended release 24 hr multivitamin 1 tab PO DAILY vitamin 04/20/21 Unknown History pravastatin 40 mg tablet 40 mg PO DAILY cholesterol 04/20/21 Unknown History ropinirole 1 mg tablet 0.5 mg PO DAILY restless legs 04/20/21 Unknown History pramipexole 0.5 mg tablet 0.5 mg PO QHS restless legs 02/14/24 02/13/24 22:00 History 0.5 mg apixaban 5 mg tablet (Eliquis) 10 mg (2 x 5 mg) PO BID #1 TAB 02/15/24 Unknown Rx Allergy/AdvReac Type Severity Reaction Status Date / Time No Known Allergies Allergy Verified 03/04/24 09:47 Surgical History Hx of heart artery stent History of total bilateral knee replacement History of cataract surgery Social History Smoking Status: Former smoker alcohol intake: current alcohol intake frequency: holidays/special occasions only ROS ROS ED ROS Narrative Constitutional: No fever, no chills. HEENT: No sore throat. No neck pain. No loss of vision. No rhinorrhea. Cardiovascular: No chest pain. No palpitations. No pedal edema. Respiratory: No cough, no shortness of breath. Abdominal: No abdominal pain. No nausea. No vomiting. Genitourinary: No dysuria. No hematuria. Musculoskeletal: No myalgias. Right elbow pain, left fifth finger pain. Neurologic: No headaches. No dizziness. No lightheadedness. Skin: No rash. No change in color. Psychiatric: No depression. No anxiety. EXAM Physical Exam Narrative Exam Narrative: Afebrile. Vital signs noted. GCS 15. ABCs intact. HEENT: Normocephalic. Atraumatic. PERRL, EOMI. Neck soft and supple. No point tenderness or step off. Cardiovascular: Regular rate and rhythm. No murmurs, rubs, or gallops appreciated. Respiratory: No tachypnea. Lungs clear to auscultation bilaterally. Gastrointestinal: Abdomen soft, nontender, with normoactive bowel sounds. No rebound or guarding. Neurological: Awake. Alert. Nonfocal, nonlateralizing. Skin: No rash. Normal color. No pallor. Positive multiple ecchymosis bilateral forearms. Musculoskeletal: No pedal edema. Positive tenderness left fifth digit distal phalanx, limited range of motion. DIP joint. Good capillary refill. Positive ecchymosis right elbow, no tenderness over proximal radial head. Neurovascular intact distally with palpable radial pulse. Positive flexion extension of elbow with pronation and supination of forearm intact without pain. Const Vital Signs: 03/04/24 09:42 03/04/24 10:44 03/04/24 11:55 Temperature 97.1 F L 98.6 F Temperature Source Temporal Pulse Rate 73 83 Respiratory Rate 18 16 Respiratory Effort Normal Non-Labored Respiratory Depth Normal Respiratory Pattern Normal Blood Pressure 135/111 H 145/102 H Blood Pressure Mean 119 116 Pulse Ox 95 96 Oxygen Delivery Method Room Air Room Air MDM MDM MDM Narrative Medical decision making narrative: Patient declined any analgesics here. In the differential is elbow contusion versus fracture/radial head fracture, and finger sprain versus fracture of his fifth digit. X-rays of the left fifth digit interpreted by myself independently show no evidence of acute fracture, there are degenerative changes and soft tissue swelling noted. I reviewed the radiology report which confirms my independent interpretation. Additionally, x-rays of the right elbow interpreted by myself independently shows no evidence of fracture. I reviewed the radiology report which also confirms my independent interpretation. At this point in time, I offered her a finger splint for comfort which she accepted, but I will refrain from having her use a sling as she has to use a walker to ambulate. She states she has leftover [place] at home, and she can also take [id number] medications. Disposition is discharged home in stable condition. Radiography Diagnostic Testing: Clinical Impression(s) from Imaging Studies Elbow X-Ray 03/04/24 10:04 IMPRESSION: No acute osseous injury. Mild degenerative changes. Electronically Signed: Allie Sanchez MD at 10:28 EDT , Finger X-Ray 03/04/24 10:04 IMPRESSION: No acute fracture. Degenerative changes of the fifth interphalangeal joints. Diffuse soft tissue swelling. Electronically Signed: Allie Sanchez MD at 10:33 EDT , Discharge Plan Triage Chief Complaint: Fall ED Provider: Randall Mike Dx/Rx/DC Orders Clinical Impression: Fall, Sprain of left little finger, Contusion of right elbow Instructions: ED Contusion, Elbow, ED Mechanical Fall, ED Finger Sprain, ED Fall Prevention Prescriptions: No Action ropinirole 1 mg tablet 0.5 mg PO DAILY pravastatin 40 mg tablet 40 mg PO DAILY amlodipine 5 mg tablet 5 mg PO DAILY losartan 50 mg tablet 50 mg PO DAILY metoprolol succinate 50 mg tablet extended release 24 hr 50 mg PO DAILY aspirin [Adult Aspirin Regimen] 81 mg tablet,delayed release (DR/EC) 81 mg PO DAILY multivitamin Tablet 1 tab PO DAILY pramipexole 0.5 mg tablet 0.5 mg PO QHS Eliquis 5 mg tablet 10 mg PO BID Qty: 1 0RF Rx Instructions: Take 2 tabs twice a day for a total of 14 doses starting tonight, then reduce the medication to 1 tablet twice a day thereafter Primary Care Provider: Diogenes Prather Chi Referrals: Diogenes Prather Chi, MD [Primary Care Provider] - 1 Week if not improving Print Language: Fijian Disposition Disposition: Home, Self Care Discharge Date/Time: 03/04/24 11:56
[2024-03-04 11:55] VITALS: BP 145/102; PULSE 83; RESP 16; TEMP 37; O2SAT 96
== END 2024-03-04 11:56 | disposition home or self-care (01) ==
PROVIDERS: Emergency Provider Emergency Medicine; PCP Family Medicine Geriatric Medicine; Visit Provider Emergency Medicine
DX: S63.617A Unspecified sprain of left little finger, initial encounter (principal); S50.01XA Contusion of right elbow, initial encounter; Z87.891 Personal history of nicotine dependence; W19.XXXA Unspecified fall, initial encounter; Z95.5 Presence of coronary angioplasty implant and graft
CPT/HCPCS: 73080; 73140; 99283

== ENCOUNTER → 2024-05-24 | Outpatient (CLI) | payer MEDICARE, SELFPAY ==
[2024-05-24 14:07] LABS: Mucous, Urine 0 SEEN /hpf (<or=2+)
--- NOTE | 2024-05-24 14:20 | RAD_ITS ---
STUDY: X-RAY - LUMBAR SPINE REASON FOR EXAM: Female, 78 years old. Low back pain. TECHNIQUE: 6 view(s) of the lumbar spine were obtained. COMPARISON: January 20, 2022 FINDINGS: Osteopenia. Normal lordosis. Minimal levoscoliosis. Stable 7 mm of anterolisthesis of L4 on L5. Diffuse moderate to marked lower thoracic and lumbosacral facet sclerosis. Progression of intervertebral disc space narrowing with osteophyte formation, subchondral sclerosis and vacuum phenomenon at L2-3 to L5-S1. Vascular calcification, surgical changes projected over the left lower quadrant and left pelvis and phleboliths, all unchanged. RAD/L/S Spine Min 4 Views IMPRESSION: Osteopenia with progression of lower thoracic and lumbosacral spondylosis as described. Electronically Signed: Gurjit Means MD at 15:44 EDT ,
[2024-05-24 14:22] LABS: Color, Urine Yellow (Yellow); Glucose, Dipstick Normal (Normal); Ketone-Dipstick Negative (Negative); Leukocyte Esterase-Dipstick 500 /ul (Negative); Nitrite-Dipstick Positive (Negative); Occult Blood-Urine 10 /ul (Negative); Protein-Dipstick 15 mg/dl (Negative); Urine Bilirubin Dipstick Negative (Negative); Urine Clarity Sl. Cloudy (Clear); Urine Urobilinogen 1 mg/dl (Normal)
[2024-05-24 14:30] LABS: Red Blood Cells-Urine 0-5 SEEN /hpf (0-5); Squamous Epithelial Cells - UA 0-5 SEEN /hpf (5-10); White Blood Cells 10-25 SEEN /hpf (0-5)
[2024-05-24 14:31] LABS: Bacteria 1+ /hpf (None Seen); White Cell Cast 0-5 SEEN /lpf (None Seen)
== END | disposition home or self-care (01) ==
PROVIDERS: PCP Family Medicine Geriatric Medicine; Referring Provider Family Medicine Geriatric Medicine; Visit Provider Family Medicine Geriatric Medicine
DX: N39.0 Urinary tract infection, site not specified (principal); M51.9 Unspecified thoracic, thoracolumbar and lumbosacral intervertebral disc disorder; M54.50 Low back pain, unspecified
CPT/HCPCS: 72110; 81001; 87077; 87086; 87088; 87186

== ENCOUNTER 2024-06-05 06:48 | Emergency (ER) | payer MEDICARE, SELFPAY ==
[2024-06-05 06:48] VITALS: BP 183/72; PULSE 90; RESP 18; TEMP 36.5; O2SAT 94
[2024-06-05 06:53] VITALS: BMI 40.7
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
[2024-06-05 08:24] VITALS: BP 151/110; PULSE 78; RESP 16; TEMP 36.4; O2SAT 95
== END 2024-06-05 08:24 | disposition home or self-care (01) ==
PROVIDERS: Emergency Provider Emergency Medicine; PCP Family Medicine Geriatric Medicine; Visit Provider Emergency Medicine
DX: S00.03XA Contusion of scalp, initial encounter (principal); I10 Essential (primary) hypertension; Z87.891 Personal history of nicotine dependence; Z79.01 Long term (current) use of anticoagulants; Z79.899 Other long term (current) drug therapy; Z86.711 Personal history of pulmonary embolism; V43.52XA Car driver injured in collision with other type car in traffic accident, initial encounter
CPT/HCPCS: 70450; 72125; 99282

== ENCOUNTER → 2024-08-27 | Outpatient (CLI) | payer MEDICARE, SELFPAY ==
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
== END | disposition home or self-care (01) ==
PROVIDERS: PCP Family Medicine Geriatric Medicine; Referring Provider Orthopaedic Surgery Sports Medicine; Visit Provider Orthopaedic Surgery Sports Medicine
DX: S46.911A Strain of unspecified muscle, fascia and tendon at shoulder and upper arm level, right arm, initial encounter (principal)
CPT/HCPCS: 73221

== ENCOUNTER 2024-08-28 16:25 | Emergency (ER) | payer MEDICARE, SELFPAY ==
[2024-08-28 16:27] VITALS: BP 156/88; PULSE 100; RESP 20; TEMP 36.2; O2SAT 99
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
[2024-08-28] MEDS: Ondansetron 4 MG/2 ML Vial IV (17:37)
[2024-08-28] MEDS: Morphine 4 MG/ML Syringe IV ×2 (17:37→19:08)
--- NOTE | 2024-08-28 17:45 | RAD_ITS ---
STUDY: X-RAY - RIGHT KNEE REASON FOR EXAM: Female, 79 years old. Injury/Pain TECHNIQUE: 2 view(s) of the knee. COMPARISON: None. FINDINGS: There is demineralization of the visualized distal femur. There is demineralization of the tibia and fibula. Normal proximal tibiofibular articulation. There is no demonstrated fracture. There is total knee replacement. Alignment is near-anatomic. There are atherosclerotic calcifications. RAD/Knee 1 or 2 Views IMPRESSION: Right knee replacement. No fracture. Electronically Signed: Itz Palma MD at 18:09 EST ,
[2024-08-28 17:46] LABS: Absolute Lymphocyte Count 2.21 X10^3/uL (0.83-4.51); Absolute Neutrophil Count 11.3 X10^3/uL (2.0-7.7); Basophil# 0.06 X10^3/uL; Basophil% 0.4 % (0-1); Eosinophil# 0.41 X10^3/uL; Eosinophils% 2.7 % (0-5); Hematocrit 37.7 % (37-47); Hemoglobin 11.8 g/dL (12.0-15.0); Lymphocyte # 2.21 X10^3/ul (0.83-4.51); Lymphocyte % 14.7 % (19-41); Mean Corp Hgb Conc 31.3 g/dL (32-36); Mean Corpuscular Hgb 27.1 pg (27.0-32.0); Mean Corpuscular Volume 86.7 fL (81-99); Monocyte# 0.89 X10^3/uL; Monocyte% 5.9 % (0-10); NRBC Flagged by Analyzer 0 % (0-5); Neutrophil # 11.34 X10^3/uL (2.7-7.7); Neutrophil % 75.3 % (47-70); Platelet Count 401 K/mm3 (150-450); RBC Distribution Width CV 14.4 % (11.6-14.6); RBC Distribution Width SD 46.2 fl (35.1-43.9); Red Blood Count 4.35 M/mm3 (4.2-5.4); White Blood Count 15.1 K/mm3 (4.4-11.0)
[2024-08-28 17:58] LABS: Anion Gap 8 (5-15); BUN 24 mg/dL (7-18); BUN/Creat Ratio 20.3 RATIO (10-20); Calcium,Total 9.3 mg/dL (8.5-10.1); Chloride 106 mmol/L (98-107); Creatinine, Serum 1.18 mg/dL (0.55-1.02); EST Glomerular Filtration Rate 47 mL/min (>60); Est Glom Filt Rate - Afr Amer 57 mL/min (>60); Glucose 140 mg/dL (74-106); Potassium 3.9 mmol/L (3.5-5.1); Sodium Level 139 mmol/L (136-145)
[2024-08-28 18:25] VITALS: PULSE 84; RESP 16
[2024-08-28 18:58] LABS: Mucous, Urine 0 SEEN /hpf (<or=2+); Red Blood Cells-Urine 0 SEEN /hpf (0-5)
[2024-08-28 19:18] LABS: Color, Urine Yellow (Yellow); Glucose, Dipstick Normal (Normal); Ketone-Dipstick Negative (Negative); Leukocyte Esterase-Dipstick 500 /ul (Negative); Nitrite-Dipstick Positive (Negative); Occult Blood-Urine Negative /ul (Negative); Protein-Dipstick 15 mg/dl (Negative); Specific Gravity, Urine 1.015 (1.002-1.030); Urine Bilirubin Dipstick Negative (Negative); Urine Clarity Sl. Cloudy (Clear); Urine Urobilinogen Normal (Normal)
[2024-08-28 19:29] LABS: Bacteria 3+ /hpf (None Seen); Squamous Epithelial Cells - UA 0-5 SEEN /hpf (5-10); White Blood Cells 10-25 SEEN /hpf (0-5)
[2024-08-28 20:00] VITALS: PULSE 93; RESP 17
[2024-08-28 22:48] VITALS: BP 139/85; PULSE 93; RESP 17; TEMP 36.3; O2SAT 96
== END 2024-08-28 23:00 | disposition home or self-care (01) ==
PROVIDERS: Emergency Provider Emergency Medicine; PCP Family Medicine Geriatric Medicine; Visit Provider Emergency Medicine
DX: S06.0X9A Concussion with loss of consciousness of unspecified duration, initial encounter (principal); S40.022A Contusion of left upper arm, initial encounter; S80.12XA Contusion of left lower leg, initial encounter; S39.91XA Unspecified injury of abdomen, initial encounter; M25.561 Pain in right knee; V43.52XA Car driver injured in collision with other type car in traffic accident, initial encounter; N28.89 Other specified disorders of kidney and ureter; I11.9 Hypertensive heart disease without heart failure; M81.0 Age-related osteoporosis without current pathological fracture; Z95.5 Presence of coronary angioplasty implant and graft; Z96.653 Presence of artificial knee joint, bilateral; Z86.711 Personal history of pulmonary embolism; Z87.891 Personal history of nicotine dependence; Z79.899 Other long term (current) drug therapy
CPT/HCPCS: 70450; 73560; 74177; 80048; 81001; 85025; 93005; 96374; 96375; 96376; 99285; Q9967; A4216; J2405

== ENCOUNTER 2024-08-30 20:24 | Emergency (ER) | payer MEDICARE, SELFPAY ==
[2024-08-30 20:25] VITALS: BP 118/102; PULSE 95; RESP 26; TEMP 36.8; O2SAT 100
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
[2024-08-30 22:24] VITALS: BP 114/74; PULSE 84; RESP 16; O2SAT 99
[2024-08-30 23:03] VITALS: BP 112/74; PULSE 85; RESP 16; TEMP 36.4; O2SAT 95
== END 2024-08-30 23:04 | disposition home or self-care (01) ==
PROVIDERS: Emergency Provider Emergency Medicine; PCP Family Medicine Geriatric Medicine; Visit Provider Emergency Medicine
DX: S20.211A Contusion of right front wall of thorax, initial encounter (principal); V89.2XXA Person injured in unspecified motor-vehicle accident, traffic, initial encounter; R06.02 Shortness of breath; I11.9 Hypertensive heart disease without heart failure; M81.0 Age-related osteoporosis without current pathological fracture; M54.12 Radiculopathy, cervical region; M19.90 Unspecified osteoarthritis, unspecified site; Z95.5 Presence of coronary angioplasty implant and graft; Z79.01 Long term (current) use of anticoagulants; Z79.899 Other long term (current) drug therapy; Z86.711 Personal history of pulmonary embolism; Z87.891 Personal history of nicotine dependence; Z96.653 Presence of artificial knee joint, bilateral
CPT/HCPCS: 71250; 99283

== ENCOUNTER 2024-09-08 18:16 | Emergency (ER) | payer MEDICARE, SELFPAY ==
[2024-09-08 18:17] VITALS: BP 155/63; PULSE 87; RESP 18; TEMP 36.2; O2SAT 98
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
--- NOTE | 2024-09-08 18:48 | RAD_ITS ---
INDICATION: right ankle pain EXAMINATION/TECHNIQUE: X-RAY - RIGHT XR Ankle Min 3 Views 3 VIEWS COMPARISON: FINDINGS: No acute fracture or dislocation. Degenerative spurring. No destructive bone changes. Joint spaces are well-maintained. Normal alignment. Marked lateral soft tissue swelling. Moderate anterior soft tissue swelling. Mild medial swelling. Atherosclerotic vascular calcification. No radiopaque foreign body or soft tissue gas. RAD/Ankle min 3 Views IMPRESSION: Soft tissue swelling. No fracture. Electronically Signed: Mary Seaman MD at 19:37 EST Reading Location ID and State: [id number] / Tel , Service support ,
== END 2024-09-08 20:22 | disposition home or self-care (01) ==
PROVIDERS: Emergency Provider Emergency Medicine; PCP Family Medicine Geriatric Medicine; Visit Provider Emergency Medicine
DX: S90.01XA Contusion of right ankle, initial encounter (principal); V99.XXXA Unspecified transport accident, initial encounter; I11.9 Hypertensive heart disease without heart failure; M81.0 Age-related osteoporosis without current pathological fracture; M19.90 Unspecified osteoarthritis, unspecified site; Z95.5 Presence of coronary angioplasty implant and graft; Z79.01 Long term (current) use of anticoagulants; Z96.653 Presence of artificial knee joint, bilateral; Z87.891 Personal history of nicotine dependence; Z79.899 Other long term (current) drug therapy; Z86.711 Personal history of pulmonary embolism
CPT/HCPCS: 73610; 99282

== ENCOUNTER → 2024-09-13 | Outpatient (CLI) | payer MEDICARE, SELFPAY ==
--- NOTE | 2024-09-13 15:48 | CYSPIN_PTH ---
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 U#:[id number] AGE/SX: 79/F ROOM: RE09/13/[address]: Kaela Sal : 1945 BED: DIS: 09/13/2024 SPEC #: [id number] RECD: 09/14/24 08:07 STATUS: ILYA REBarbara #: [id number] [place]: 09/13/24 15:[address]: Kaela Sal DEPT: CYTOLOGY RECD BY: Shandra Singletary ENTERED: 09/14/24 08:08 SP TYPE: CYSPIN FL OTHR DR: Dr. 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 Acute inflammation. See comment. 09/14/2024 COMMENT The specimen predominantly consists of squamous epithelial cells. Organisms consistent with bacteria are also noted. The Martha System for urine cytology diagnostic categorization was used in the evaluation of this case. Clinical correlation and appropriate follow up are necessary. CYTOLOGY STUDY Slides are reviewed. CYTOLOGY GROSS Received is 5 ml of dark-yellow cloudy fluid labeled with the patient's name and and designated per the requisition as urine. Submitted for cytology preparation. Mr 09/14/2024 TC:2 CPT: 03797
[2024-09-13 15:50] LABS: Cytology, Body Fluid / CSF SEE PATHOLOGY REPORT
== END | disposition home or self-care (01) ==
LOC: LABSPEC 15:33
PROVIDERS: PCP Family Medicine Geriatric Medicine; Referring Provider Nurse Practitioner; Visit Provider Nurse Practitioner
DX: D41.02 Neoplasm of uncertain behavior of left kidney (principal)
CPT/HCPCS: 88108; 88313

== ENCOUNTER → 2024-10-05 | Outpatient (CLI) | payer MEDICARE, SELFPAY ==
--- NOTE | 2024-10-05 08:08 | MRI_ITS ---
ACR Level 3 findings have been noted. An addendum which confirms receipt of the report will follow. MRI Abdomen w/ and w/out contrast 10/05/2024 9:00 AM COMPARISON: CT 08/28/2024 CLINICAL HISTORY: NEOPLASM L KIDNEY TECHNIQUE: Multiplanar T1 and T2 weighted, diffusion and dynamic post-gadolinium images were obtained through the abdomen before and after administration of 23 cc of IV Clariscan. FINDINGS: Liver: 2.4 cm T1 hypointense/T2 hyperintense well-circumscribed nonenhancing cyst in the inferior liver tip. Gallbladder: Unremarkable Pancreas: Unremarkable Spleen: Unremarkable Adrenal Glands: Unremarkable Kidneys: There is a 3.8 x 2.7 x 3.2 cm heterogeneously T1 isointense/T2 hypointense mass in the mid left kidney in close proximity to the left renal sinus. It demonstrates drop of signal on T1 opposed phase images compared to T1 in phase images compatible with intracellular fat. It also demonstrates heterogeneous areas of signal drop on fat saturation sequence compatible with extracellular fat. Demonstrates heterogeneous enhancement. GI Tract: Unremarkable Lymphadenopathy: Absent Ascites: Absent Bones: No suspicious lesions MRI/MRI Abd WITH and W/O Contrast IMPRESSION: 3.8 cm heterogeneously enhancing mass in the mid left kidney in close proximity to the left renal sinus and containing both extracellular and intracellular fat. Differential includes angiomyolipoma and clear cell renal cell carcinoma. 2.4 cm nonenhancing cyst in the inferior liver tip. Electronically Signed: Hao Vasquez MD at 20:17 EST ,
[2024-10-05 09:08] LABS: CREATININE FINGERSTICK < 1.0 mg/dL (0.55-1.02); EGFR FINGERSTICK > 60.0000 mL/min (>60)
== END | disposition home or self-care (01) ==
LOC: MRI 07:54
PROVIDERS: PCP Family Medicine Geriatric Medicine; Referring Provider Urology; Visit Provider Urology
DX: D41.02 Neoplasm of uncertain behavior of left kidney (principal)
CPT/HCPCS: 74183; A9575

== ENCOUNTER → 2024-12-27 | Outpatient (CLI) | payer MEDICARE, SELFPAY ==
--- NOTE | 2024-12-27 10:48 | VDLE_ITS ---
Reason For Study Reason For Study: BLE Swelling RIGHT LEFT GSV is normal. GSV is normal. CFV is compressible, spontaneous, phasic, competent CFV is compressible, spontaneous, phasic, competent, and demonstrates normal augmentation. and demonstrates normal augmentation. FV is compressible, spontaneous, phasic, competent FV is compressible, spontaneous, phasic, competent and demonstrates normal augmentation. and demonstrates normal augmentation. POP V is compressible, spontaneous, phasic, competent POP V is compressible, spontaneous, phasic, competent and demonstrates normal augmentation. and demonstrates normal augmentation. T/P Trunk is compressible. T/P Trunk is compressible. PTV is compressible. PTV is compressible. RT PerV is compressible. LT PerV is compressible. Anechoic nonvascularized within muscle fascia is noted from medial distal thigh to knee. Procedure This is a venous duplex using B-mode, color flow and spectral Doppler. Exam performed in department. The exam was diagnostic. VL/Venous Duplex US - [place] Extrem Interpretation Summary Deep veins of the bilateral lower extremities are patent and compressible segme ntally. There is no evidence of bilateral lower extremity deep vein thrombosis. The bilateral great saphenous veins appea r patent and compressible segmentally. Anechoic nonvascularized structure within muscle fascia is noted from right med ial distal thigh to knee. Ordering Physician: Analia Giles Referring Physician: Analia Giles Performed By: Damián Sanchez, RVT
--- NOTE | 2024-12-27 12:30 | BD_ITS ---
EXAM: DEXA BONE DENSITY STUDY 12/27/2024 REASON FOR EXAM: SCREENING F,79 y/o patient is postmenopausal TECHNIQUE: DXA scan of the lumbar spine and total body less head, using make and model. REFERENCE LINKS: ISCD Pediatric Positions ISCD Adult Positions COMPARISON: None. FINDINGS: BMD and Z-SCORES DEXA examination of lumbar spine shows a bone mineral density measured 1.185 grams/centimeter squared. T-score measures 1.9 and Z-score measures 4.3. DEXA examination left hip shows a bone mineral density of the neck measures 0.647 grams/centimeter squared. T-score measures -1.8 and Z-score measures 0.4. DEXA examination of the total left hip shows a bone mineral density measured 0.813 grams/centimeter squared. T-score measures -1.1 and Z-score measures 0.9. DEXA examination of the right femoral neck shows a bone mineral density measured 0.691 grams/centimeter squared. T-score measures -1.4 and Z-score measures 0.8. DEXA examination of the total right hip shows a bone mineral density measures 0.857 grams/centimeter squared. T-score measures -0.7 and Z-score measures 1.2. Fracture Risk Calculation: FRAX (10-year Fracture Risk) Score: The 10 year fracture risk index for major osteoporotic fracture is 17% and for hip fracture is 3.6% The patient meet the pharmacological treatment recommendations for prevention of osteoporosis BD/Dexa Bone Density Study IMPRESSION: Patient demonstrates osteopenia of both hips and normal bone mineral density of the lumbar spine. Recommend follow-up, if clinically warranted. Reading Location: [id number]
== END | disposition home or self-care (01) ==
LOC: OPBD 10:47
PROVIDERS: PCP Internal Medicine; Referring Provider Internal Medicine; Visit Provider Internal Medicine
DX: M79.89 Other specified soft tissue disorders (principal); Z86.718 Personal history of other venous thrombosis and embolism; Z78.0 Asymptomatic menopausal state
CPT/HCPCS: 77080; 93970

== ENCOUNTER → 2025-02-07 | Outpatient (CLI) | payer MEDICARE, SELFPAY ==
--- NOTE | 2025-02-07 16:19 | US_ITS ---
PROCEDURE: EXT NON VASC LIMITED/SOFT TISS 02/07/2025 REASON FOR EXAM: HYPOECHOIC STRUCTURE ON RIGHT LEG TECHNIQUE: Ultrasound targeted to the palpable abnormality at the right posterior knee subcutaneous tissue. COMPARISON: None FINDINGS: Right posterior knee area of concern shows a complex hypoechoic area with no vascularity. It shows irregular borders and measures 3.9 x 1.8 x 1.4 cm. US/Ext Non Vasc Limited/Soft Tiss IMPRESSION: Right posterior knee area of concern complex nonvascular hypoechoic area. Find ings could represent Mcleod's cyst, please correlate clinically and follow-up as indicated. Reading [facility]
[2025-02-07 17:41] LABS: Anion Gap 14 (5-15); BUN 38 mg/dL (4-19); BUN/Creat Ratio 24.8 RATIO (10-20); Calcium,Total 9.7 mg/dL (7.6-11.0); Carbon Dioxide 24.4 mmol/L (21.0-32.0); Chloride 102 mmol/L (98-108); Creatinine, Serum 1.54 mg/dL (0.70-1.20); EST Glomerular Filtration Rate 35 (>60); Glucose 136 mg/dL (70-99); Potassium 4.4 mmol/L (3.3-5.1); Sodium Level 140 mmol/L (133-145)
== END | disposition home or self-care (01) ==
PROVIDERS: PCP Internal Medicine; Referring Provider Internal Medicine; Visit Provider Internal Medicine
DX: R93.89 Abnormal findings on diagnostic imaging of other specified body structures (principal); N18.31 Chronic kidney disease, stage 3a; E03.9 Hypothyroidism, unspecified
CPT/HCPCS: 36415; 76882; 80048; 84443

== ENCOUNTER 2025-03-07 18:15 | Emergency (ER) | payer MEDICARE, SELFPAY ==
[2025-03-07 18:16] VITALS: BP 155/70; PULSE 88; RESP 16; TEMP 37.1; O2SAT 97
[2025-03-07 18:17] VITALS: BMI 42.2
--- NOTE | 2025-03-07 18:30 | RAD_ITS ---
PROCEDURE: HIP, UNI W/ PELVIS 2-3 VIEWS 03/07/2025 REASON FOR EXAM: PAIN TECHNIQUE: Three views of the right hip COMPARISON: Right hip radiographs dated 10/25/2022 FINDINGS: No displaced fracture or traumatic malalignment. There is moderate to severe joint space narrowing in the right hip. Curvilinear metallic densities projecting over the sacrum are unchanged and likely post procedural. Vascular calcifications in the soft tissues. Degenerative changes of the sacroiliac joints and lumbar spine. RAD/HIP, UNI W/ Pelvis 2-3 Views IMPRESSION: 1. No displaced fracture. Consider CT or MRI if there is heightened concern f or a nondisplaced fracture. 2. Moderate to severe osteoarthritis of the right hip. Reading Location: [facility]
--- NOTE | 2025-03-07 18:34 | EDS_ITS ---
HPI <JENNIFER Marquez - Last Filed: 03/07/25 19:28> History of Present Illness Chief Complaint: Lower Extremity Injury Narrative Narrative: 79-year-old female has had 1 week of right hip pain that radiates from the lateral hip to the groin. There was no injury at onset. It hurts more with movement. She cannot ambulate with her walker which is her baseline. She fell yesterday, states when she was sitting down on the couch she missed the edge and landed on her right hip and it has been more sore since then. She is taking NSAIDs for the pain. She has no pain that radiates down the leg. No weakness or numbness or tingling. She has chronic swelling in both feet and is on Lasix and states the amount of swelling is unchanged. [facility] <JENNIFER Marquez - Last Filed: 03/07/25 19:28> [facility] Medical History Synovial cyst of popliteal space [[facility]], right knee Right knee pain Pulmonary emboli Right rotator cuff tear Primary osteoarthritis, right shoulder Former smoker Strain of right biceps Strain of right shoulder Cervical radiculopathy Strain of right trapezius muscle Cervical strain Heart disease Arthritis HTN (hypertension) Home Medications ?Medication ?Instructions ?Recorded ?Last Taken ?Type multivitamin 1 tab PO DAILY vitamin 04/20 Unknown History aspirin 81 mg capsule 81 mg PO QDAY 11/29/24 Unkno wn History compr.stocking,thigh,reg,large #2 ea 11/29/24 Unknown Rx amlodipine 5 mg tablet 5 mg PO DAILY blood pressure #90 01/31/25 Unknown Rx tabs doxepin 10 mg capsule 10 mg PO QDAY #90 caps 01/31 Unknown Rx furosemide 20 mg tablet (Lasix) 20 mg PO QDAY #7 tabs 01/31/25 Unknown Rx levothyroxine 50 mcg tablet 50 mcg PO DAILY #90 tabs 0 01/31/25 Unknown Rx losartan 100 mg tablet 100 mg PO DAILY blood pressu re #90 01/31/25 Unknown Rx tabs pramipexole 0.5 mg tablet 0.5 mg PO BID restless legs #180 01/31/25 Unknown Rx tabs pravastatin 40 mg tablet 40 mg PO DAILY cholesterol # 90 tabs 01/31/25 Unknown Rx hydrocodone-acetaminophen 5-325mg 1 tab PO Q6H PRN PRN Pain 3 days 03/07/25 Unknown Rx 5mg-325mg #10 TABLETS Allergy/AdvReac Type Severity Reaction Status Date / Time No Known Allergies Allergy Verified 03/07/25 18:16 Family History Mother Arthritis Hypertension Father Hypertension CVA (cerebral vascular accident) Surgical History H/O hernia repair H/O removal of cyst Hx of heart artery stent History of total bilateral knee replacement History of cataract surgery Social History household members: none current occupational status: retired current occupation: multiple jobs Smoking Status: Former smoker quit date: 10/03/74 pack-years: 1 alcohol intake: current alcohol intake frequency: holidays/special occasions only substance use type: does not use what type of physical activity do you participate in: none seatbelt use: always do you feel safe at home: Yes ROS <JENNIFER Marquez - Last Filed: 03/07/25 19:28> ROS ED ROS Narrative Constitutional: Negative for fever, chills, malaise. Neuro: Negative for motor/sensory dysfunction. Skin: Negative for rash, abscess, or wound. Musc: Positive for right hip pain. EXAM <JENNIFER Marquez - Last Filed: 03/07/25 19:28> Physical Exam Narrative Exam Narrative: CONST: Patient sitting in no acute distress. EYES: Normal inspection. NECK: Normal inspection. RESP: No respiratory distress, CTAB. CVS: Regular rate and rhythm, no murmur, no gallop. Back: Normal inspection, no midline tenderness. SKIN: Color normal, no rash, warm, dry, intact. EXTREMITIES: Bilateral lower extremities appear symmetric. Tender over the right greater trochanter. No tenderness of the rest of the pelvis or groin. Right hip pain with range of motion. No tenderness over the knee schafer ankle or foot. Left lower extremity nontender. Symmetric pitting edema both feet. No erythema warmth or rashes. 2+ DP pulses. NEURO: Alert and answering questions appropriately. PSYCH: Normal affect. Const Vital Signs: 03/07/25 18:16 03/07/25 19:39 Temperature 98.7 F 98.7 F Temperature Source Temporal Pulse Rate 88 79 Respiratory Rate 16 16 Blood Pressure 155/70 H 149/80 H Blood Pressure Mean 98 103 Pulse Ox 97 97 Oxygen Delivery Method Room Air <Dr. Juma Vuong, DO - Last Filed: 03/07/25 21:31> Physical Exam Const Vital Signs: 03/07/25 18:16 03/07/25 19:39 Temperature 98.7 F 98.7 F Temperature Source Temporal Pulse Rate 88 79 Respiratory Rate 16 16 Blood Pressure 155/70 H 149/80 H Blood Pressure Mean 98 103 Pulse Ox 97 97 Oxygen Delivery Method Room Air MDM <JENNIFER Marquez - Last Filed: 03/07/25 19:28> [facility] Narrative Medical decision making narrative: Differential includes but not limited to musculoskeletal pain, bursitis, hip or pelvic fracture 79-year-old female has had atraumatic right hip pain over the last week and then slipped and fell on it yesterday. She is ambulatory down the cuevas with her walker. She indicates tenderness of the right lateral hip and has some pain with range of motion. Neurovascularly intact. No overlying skin changes or signs of infection. X-ray shows osteoarthritis without acute findings. I suspect she could have musculoskeletal pain superimposed on osteoarthritis. She is already taking NSAIDs and I prescribed Beatrice for breakthrough pain. She will follow-up with her established orthopedic doctor, Dr. Bowman. She was discharged in stable condition. Radiography Diagnostic Testing: Clinical Impression(s) from Imaging Studies Hip/Pelvis X-Ray 03/07/25 18:30 IMPRESSION: 1. No displaced fracture. Consider CT or MRI if there is heightened concern for a nondisplaced fracture. 2. Moderate to severe osteoarthritis of the right hip. Reading Location: [id number] ED attending interpretation of right hip and pelvis shows no acute fracture or dislocation. <Dr. Juma Vuong, - Last Filed: 03/07/25 21:31> [facility] Narrative Medical decision making narrative: Differential includes but not limited to musculoskeletal pain, bursitis, hip or pelvic fracture 79-year-old female has had atraumatic right hip pain over the last week and then slipped and fell on it yesterday. She is ambulatory down the cuevas with her walker. She indicates tenderness of the right lateral hip and has some pain with range of motion. Neurovascularly intact. No overlying skin changes or signs of infection. X-ray shows osteoarthritis without acute findings. I suspect she could have musculoskeletal pain superimposed on osteoarthritis. She is already taking NSAIDs and I prescribed Beatrice for breakthrough pain. She will follow-up with her established orthopedic doctor, Dr. Bowman. She was discharged in stable condition. Attending note: I have personally performed a face to face assessment of the patient and have reviewed the AMBER note. I personally made/approved the management plan and take responsibility for the patient management. I performed a substantive portion of the visit including all aspects of the following. My lim findings include: Nontraumatic right hip pain for last week. She ambulates with a walker at baseline prior to this. 2 days ago's slid off her couch onto her hip. No head injuries. Able to ambulate with her walker. She sees orthopedics for her right shoulder with planning upcoming surgery. On exam tender palpation lateral hip negative logroll no shortening or rotation. Soft compartments. Three-view x-ray right hip with pelvis interpreted myself and read by radiology osteoarthritic changes noted. No fractures. She provided pain medicines for symptom control outpatient follow-up with her orthopedist. Radiography Diagnostic Testing: Clinical Impression(s) from Imaging Studies Hip/Pelvis X-Ray 03/07/25 18:30 IMPRESSION: 1. No displaced fracture. Consider CT or MRI if there is heightened concern for a nondisplaced fracture. 2. Moderate to severe osteoarthritis of the right hip. Reading Location: [id number] Discharge Plan Triage Chief Complaint: Lower Extremity Injury ED Midlevel Provider: Argelia Chavez ED Provider: Juma Vuong Dx/Rx/DC Orders Clinical Impression: Acute pain of right hip, Osteoarthritis of right hip Instructions: ED Hip Contusion, ED Hip Strain Prescriptions: New hydrocodone-acetaminophen 5-325 mg tablet 1 tab PO Q6H PRN PRN (Reason: Pain) 3 Days Qty: 10 0RF No Action multivitamin Tablet 1 tab PO DAILY aspirin 81 mg capsule 81 mg PO QDAY (DME) compr.stocking,thigh,reg,large Misc See Rx Instructions .Route Qty: 2 0RF Rx Instructions: As directed furosemide [Lasix] 20 mg tablet 20 mg PO QDAY Qty: 7 0RF amlodipine 5 mg tablet 5 mg PO DAILY Qty: 90 0RF levothyroxine 50 mcg tablet 50 mcg PO DAILY Qty: 90 0RF losartan 100 mg tablet 100 mg PO DAILY Qty: 90 0RF pramipexole 0.5 mg tablet 0.5 mg PO BID Qty: 180 0RF pravastatin 40 mg tablet 40 mg PO DAILY Qty: 90 0RF doxepin 10 mg capsule 10 mg PO QDAY Qty: 90 0RF Primary Care Provider: Analia Giles Referrals: Analia Giles MD [Primary Care Provider] - Dago Bowman MD [Med Staff - Active Staff] - Activity Restrictions/Additional Instructions: Your x-ray shows hip osteoarthritis but no fracture. You can ice the area in 20-minute sessions multiple times a day. Take Beatrice as needed for pain. This medication can have side effects of nausea, sedation, and constipation. I recommend use of stool softener while on them. Follow-up with your orthopedic doctor. Print Language: Afghan Disposition Disposition: Home, Self Care Discharge Date/Time: 03/07/25 20:00
[2025-03-07 19:39] VITALS: BP 149/80; PULSE 79; RESP 16; TEMP 37.1; O2SAT 97
[2025-03-07] MEDS: HYDROcodone Bitartrate/Apap 5/325 Tablet PO (19:44)
== END 2025-03-07 20:00 | disposition home or self-care (01) ==
PROVIDERS: Emergency Provider Emergency Medicine; PCP Internal Medicine; Referring Provider Emergency Medicine; Visit Provider Emergency Medicine
DX: M16.11 Unilateral primary osteoarthritis, right hip (principal); I10 Essential (primary) hypertension; Z87.891 Personal history of nicotine dependence; Z79.899 Other long term (current) drug therapy; Z79.82 Long term (current) use of aspirin; Z95.5 Presence of coronary angioplasty implant and graft; Z86.711 Personal history of pulmonary embolism
CPT/HCPCS: 73502; 99283

== ENCOUNTER → 2025-03-21 | Outpatient (CLI) | payer MEDICARE, SELFPAY ==
--- NOTE | 2025-03-21 15:36 | CT_ITS ---
PROCEDURE: EXTREMITY UPPER WITHOUT CONTRA 03/21/2025 REASON FOR EXAM: FOR RTSA PLANNING - BLUEPRINT CUTS THANKS TECHNIQUE: EXTREMITY UPPER WITHOUT CONTRA Coronal and Sagittal reconstruction series were provided. One or more dose reduction techniques were used (e.g., Automated exposure control, adjustment of the mA and/or kV according to patient size, use of iterative reconstruction technique RADIATION DOSE SUMMARY: CTDlvol: 31.18 mGy DLP: 907.69 mGycm COMPARISON: None FINDINGS: Bones: Degenerative spur seen along the inferior medial aspect of the humeral head. This causes encroachment on the glenohumeral joint with impingement. The acromioclavicular joint is unremarkable. Joints: Marked degree of joint space narrowing with subchondral cystic changes at the level of the glenoid aspect of the scapula. Soft Tissues: Unremarkable. CT/Extremity Upper without Contra IMPRESSION: Degenerative changes at the glenohumeral joint with a large spur arising from t he inferior medial aspect of the proximal humeral head causing impingement at the level of the glenohumeral joint. Reading Location: [place] [id number]
== END | disposition home or self-care (01) ==
LOC: CT 15:36
PROVIDERS: PCP Internal Medicine; Referring Provider Orthopaedic Surgery Sports Medicine; Visit Provider Orthopaedic Surgery Sports Medicine
DX: M75.101 Unspecified rotator cuff tear or rupture of right shoulder, not specified as traumatic (principal); M19.011 Primary osteoarthritis, right shoulder
CPT/HCPCS: 73200

== ENCOUNTER → 2025-05-02 | Outpatient (CLI) | payer MEDICARE, SELFPAY ==
--- NOTE | 2025-05-02 16:25 | CT_ITS ---
PROCEDURE: EXTREMITY LOWER WITHOUT CONTRA 05/02/2025 REASON FOR EXAM: RULE OUT FRACTURE Chronic right hip pain. TECHNIQUE: EXTREMITY LOWER WITHOUT CONTRA Coronal and Sagittal reconstruction series were provided. CONTRAST: None One or more dose reduction techniques were used (e.g., Automated exposure control, adjustment of the mA and/or kV according to patient size, use of iterative reconstruction technique). RADIATION DOSE SUMMARY: CTDlvol: 37.95 mGy DLP: 1762.94 mGycm COMPARISON: Prior radiographs dated April 19, 2025. FINDINGS: There is a marked degree of joint space narrowing of the right hip joint. Small subchondral cystic changes seen in the femoral head. This is in keeping with advanced osteoarthritis. No fracture or dislocation is seen. Degenerative changes and disc space narrowing in the lower lumbar spine. CT/Extremity Lower without Contra IMPRESSION: Marked degree of osteoarthritis of the right hip joint without evidence of frac ture as described. Degenerative disc disease of the visualized lower lumbar spine. Reading Location: [facility]
== END | disposition home or self-care (01) ==
LOC: CT 16:12
PROVIDERS: PCP Internal Medicine; Referring Provider Orthopaedic Surgery; Visit Provider Orthopaedic Surgery
DX: M25.551 Pain in right hip (principal)
CPT/HCPCS: 73700

== ENCOUNTER → 2025-07-10 | Outpatient (CLI) | payer MEDICARE, SELFPAY ==
--- NOTE | 2025-07-10 17:39 | CT_ITS ---
PROCEDURE: ABDOMEN/PELVIS W IV CONT ONLY 07/10/2025 REASON FOR EXAM: NEOPLASM OF UNCERTAIN BEHAVIOR OF LEFT KIDNEY TECHNIQUE: Procedure Code: [id number] Modality: CT Procedure: ABDOMEN/PELVIS W IV CONT ONLY Coronal and Sagittal reconstruction series were provided. CONTRAST: Isovue-300 VOLUME: 100 mL One or more dose reduction techniques were used (e.g., Automated exposure control, adjustment of the mA and/or kV according to patient size, use of iterative reconstruction technique. RADIATION DOSE SUMMARY: CTDlvol: 36.33 mGy DLP: 1194.55 mGycm COMPARISON: CT abdomen and pelvis with contrast, 08/28/2024; MRI abdomen with and without contrast, 10/05/2024 FINDINGS: Lung bases: The lung bases are clear. There are no pleural effusions. The heart size is normal. There is no pericardial effusion. There is moderate calcific vascular disease of the coronary arteries and visualized thoracic aorta. Liver: Normal size. No solid mass. There are multiple stable benign cysts. Gallbladder: Normal. Spleen: Normal size. Pancreas: Normal size without evidence of mass surrounding inflammation or ductal dilation. Adrenals: Normal. Kidneys: There is a stable heterogeneously enhancing mass in the interpolar cortex of the left kidney measuring 3.0 x 2.0 cm (was 2.9 x 1.9 cm). There is focal renal cortical atrophy adjacent to the mass. The right kidney is normal. Bladder: The urinary bladder is unremarkable. Reproductive Organs: The uterus and ovaries are unremarkable. There is no free fluid in the pelvis. There is no inguinal lymphadenopathy. Bowel: There is a small hiatal hernia. There are scattered colonic diverticuli without evidence of acute inflammation. Appendix: Normal. Lymph nodes: No suspicious lymph node enlargement. Vasculature: The abdominal aorta is heavily calcified. There is significant calcified plaque at the origin of the SMA, the right renal artery in both common iliac arteries. Peritoneum / Retroperitoneum: There is no free fluid in the abdomen. Bones: There is moderate to severe multilevel degenerative disc disease of the lumbar spine, most severe at the L4-5 and L5-S1 levels. There is degenerative grade 1 anterolisthesis of L4 on L5. CT/Abdomen/Pelvis W IV Cont ONLY IMPRESSION: 1. Stable mass in the left kidney. 2. Other findings as noted, not significantly changed. Reading Location: [place] [id number]
[2025-07-10 18:02] LABS: CREATININE FINGERSTICK 1.1 mg/dL (0.55-1.02); EGFR FINGERSTICK 51.0000 mL/min (>60)
== END | disposition home or self-care (01) ==
LOC: CT 17:38
PROVIDERS: PCP Internal Medicine; Referring Provider Urology; Visit Provider Urology
DX: D41.02 Neoplasm of uncertain behavior of left kidney (principal); C64.2 Malignant neoplasm of left kidney, except renal pelvis
CPT/HCPCS: 74177; Q9967

== ENCOUNTER → 2025-08-20 | Outpatient (CLI) | payer MEDICARE, SELFPAY | END | disposition home or self-care (01) | LOC: LABSPEC 15:26 | PROVIDERS: PCP Internal Medicine; Visit Provider Physician Assistant | DX: R35.0 Frequency of micturition (principal) | CPT/HCPCS: 87077; 87086; 87088; 87186 ==